=== PATIENT | female | born 1950 | race Caucasian/White ===

== ENCOUNTER 2020-11-24 17:20 | IRF | payer OTHER, SELFPAY ==
--- NOTE | 2020-11-24 17:50 | ADMGEN ---
This patient, Michelle Jeronimo, was admitted to [facility] Room 225-02. Patient/family oriented to hospital policies and general routines including ID bracelet, bed and alarms, visiting hours, pain management, procedures, bathroom and other care routines, personal items, smoking policy, room service/diet, and visiting hours. Information on how to activate the Rapid Response Team has been discussed. Patient/Family are encouraged to report perceived risks to care and to ask questions if they do not understand what they are told or what they should do.
[2020-11-24 17:55] VITALS: BMI 27.6
[2020-11-24 17:56] VITALS: BP 114/50; PULSE 70; RESP 18; TEMP 36.1; O2SAT 97
[2020-11-24 19:39] VITALS: BMI 27.6
[2020-11-24 21:02] VITALS: PULSE 64
[2020-11-24] MEDS: DICLOFENAC SODIUM 1% 100 GM GEL (*BKC) 2 APPLIC TOPICAL (21:02)
[2020-11-24] MEDS: carvediloL 3.125 MG TABLET PO (21:02)
[2020-11-24] MEDS: SACUBITRIL/VALSARTAN 24-26 MG TABLET 1 TAB PO (21:02)
[2020-11-24 22:00] VITALS: BP 127/67; PULSE 70; RESP 16; TEMP 36.1; O2SAT 95
[2020-11-25 05:28] LABS: Basophils Absolute Auto 0.1 K/mm3 (0.0-0.1); Basophils Percent Auto 0.8 % (0.2-1.2); Eosinophils Absolute Auto 0.5 K/mm3 (0-0.3); Eosinophils Percent Auto 6.5 % (0-4.4); Hematocrit 35.5 % (37.0-47.0); Hemoglobin 11.4 g/dL (12.0-15.0); Immature Granulocyte Absolute 0.02 K/mm3 (0.00-0.031); Immature Granulocyte Percent A 0.3 % (0-0.5); Lymphocytes Absolute Auto 2.93 K/mm3 (0.9-3.2); Lymphocytes Percent Auto 41.4 % (18.3-44.2); Mean Corpuscular HGB Conc 32.1 g/dl (32-36); Mean Corpuscular Hemoglobin 28.6 pg (26-34); Mean Platelet Volume 10.9 fl (7.4-10.4); Monocytes Absolute Auto 0.7 K/mm3 (0.1-0.6); Monocytes Percent Auto 10.2 % (2.6-8.5); Neutrophils Absolute Auto 2.9 K/mm3 (1.3-6.7); Neutrophils Percent Auto 40.8 % (45.5-73.1); Platelet Count Result 155 k/mm3 (150-375); Red Blood Count 3.99 M/mm3 (4.2-5.4); Red Cell Distribution Width 14.1 % (11.5-14.5); White Blood Count 7.1 K/mm3 (4.5-10.0)
[2020-11-25 05:47] LABS: Alanine Aminotransferase 21 U/L (4-35); Albumin Level 3.8 g/dL (3.5-5.1); Alkaline Phosphatase 91 U/L (38-126); Anion Gap 4 mmol/L (8-16); Aspartate Amino Transferase 35 U/L (14-36); Bilirubin,Total 0.6 mg/dL (0.2-1.3); Blood Urea Nitrogen 34 mg/dL (7-17); Calcium 9.9 mg/dL (8.4-10.2); Carbon Dioxide 26 mmol/L (22-30); Chloride 108 mmol/L (98-107); Cholesterol 147 mg/dL (0-200); Estimated CRCL calculation 41 ml/min; Estimated Glomerular Filt Rate 55; Glucose 91 mg/dL (65-105); HDL Direct 50 mg/dL; Potassium 4.3 mmol/L (3.4-5.0); Sodium 138 mmol/L (137-145); Triglycerides 73 mg/dL (<150)
[2020-11-25 05:51] VITALS: BP 115/50; PULSE 72; RESP 16; TEMP 36.3; O2SAT 95
[2020-11-25 05:58] LABS: LDL Cholesterol Direct 75 mg/dL
[2020-11-25 09:14] VITALS: PULSE 76
[2020-11-25] MEDS: DICLOFENAC SODIUM 1% 100 GM GEL (*BKC) 2 APPLIC TOPICAL ×4 (09:14→22:15)
[2020-11-25] MEDS: EZETIMIBE 10 MG TABLET PO (09:14)
[2020-11-25] MEDS: SACUBITRIL/VALSARTAN 24-26 MG TABLET 1 TAB PO ×2 (09:14→22:11)
[2020-11-25] MEDS: PARoxetine 10 MG TABLET PO (09:14)
[2020-11-25] MEDS: CHOLECALCIFEROL 1,000 UNITS TABLET 2000 UNITS PO (09:14)
[2020-11-25] MEDS: carvediloL 3.125 MG TABLET PO ×2 (09:14→22:10)
[2020-11-25] MEDS: ASPIRIN 81 MG CHEWABLE TABLET PO (09:14)
[2020-11-25] MEDS: FUROSEMIDE 20 MG TABLET PO (09:15)
[2020-11-25] MEDS: CLOPIDOGREL BISULFATE 75 MG TABLET PO (09:15)
--- NOTE | 2020-11-25 09:45 | WPDREHABHP ---
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 The patient reported being lightheaded after the fall with left leg weakness.. WORKUP: CT of the head was negative for any acute abnormalities. CT of the cervical and lumbar spine demonstrated mild compression deformity involving the superior endplate of L2 without retropulsion, and multilevel degenerative changes with osteopenia. A head MRI could not be completed due to patient's pacemaker. CTA of the head and neck showed no significant stenosis or occlusion. Echocardiogram showed left ventricular systolic function was severely reduced less than 30% with ejection fraction of 25-30%, and mild mitral stenosis with mild aortic regurgitation. Neurology diagnosed patient with new stroke based on clinical findings of left hemiplegia, left-sided numbness, left facial weakness, and functional decline below her baseline. . Of note patient's right upper extremity fractures caused long-term right upper extremity weakness, limited ROM. Patient used a small base quad cane in the left hand for balance. . The patient was started on Plavix and aspirin. Plavix is to continue long-term. Aspirin is to continue for 3 weeks Therapy was initiated at the acute care facility and the patient transferred to us from [facility] on 11/24 2020. FALLS OR SURGERIES: The patient has had no major surgeries in the 100 days prior to admission. Patient has had 2 ( current fall and one 8 months ago) falls in the past year. They had falls with injury ( L2 compression fracture)in the past year. PRIOR LEVEL OF FUNCTION: Eating was [INDEPENDENT] Oral Care was [INDEPENDENT] Toileting Hygiene was [INDEPENDENT] Shower/Bathing was [INDEPENDENT] Upper Body Dressing was [INDEPENDENT] Lower Body Dressing was [INDEPENDENT] Donning/[place] Footwear was [INDEPENDENT] Rolling Left and Right was [INDEPENDENT] Sit to Lying was [INDEPENDENT] Lying to Sitting was [INDEPENDENT] Sit to Stand was [INDEPENDENT] Bed to Chair Transfers was [INDEPENDENT] Toilet Transfers was [INDEPENDENT] Walking was 750 ft independently with small base quad cane Wheelchair Mobility was [NOT APPLICABLE PRIOR TO ADMISSION] Stairs were 12 stairs independently CURRENT LEVEL OF FUNCTION: Eating was independent Oral Care was partial to moderate assist Toileting Hygiene was substantial to maximum assist Shower/Bathing was substantial to maximum assist Upper Body Dressing was partial to moderate assist Lower Body Dressing was substantial to maximal assist Donning/[place] Footwear was substantial to maximum assist Rolling Left and Right was partial to moderate assist Sit to Lying was substantial to maximal assist Lying to Sitting was substantial to maximal assist Sit to Stand was substantial to Bed to Chair Transfers were maximal assist substantial to maximal assist Toilet Transfers were substantial to maximal is Walking was 20 ft with a standard walker and max assist ( min of 2) Wheelchair Mobility was not tested Stairs were not tested GOALS: Our therapists will evaluate the patient and establish the goals. However, upon pre-admission screening, the expected goals were to be [INDEPENDENT] with self-care, [INDEPENDENT] with transfers, and [INDEPENDENT] with functional mobility so that the patient can return home. ESTIMATED LENGTH OF STAY: 7-10 days] POTENTIAL BARRIERS TO DISCHARGE: [
[2020-11-25 11:38] VITALS: BMI 27.6
--- NOTE | 2020-11-25 13:11 | PCNSR ---
On 11/25/20, the student, Janet Fall, provided care and completed [facility] documentation on this patient. I have reviewed the student's documentation and agree with the findings.
--- NOTE | 2020-11-25 13:55 | PCSTNOTE ---
Please refer to the Bedside Swallow Evaluation in the EMR. Please note, silent aspiration cannot be ruled out at bedside.
[2020-11-25 14:00] VITALS: BP 106/49; PULSE 68; RESP 18; TEMP 36.8; O2SAT 98
[2020-11-25 22:00] VITALS: BP 102/57; PULSE 70; RESP 16; TEMP 36.7; O2SAT 96
[2020-11-25 22:08] VITALS: BP 112/54
[2020-11-25 22:10] VITALS: PULSE 70
[2020-11-26 05:53] VITALS: BP 103/44; PULSE 70; RESP 16; TEMP 36.1; O2SAT 98
[2020-11-26 09:25] VITALS: PULSE 76
[2020-11-26] MEDS: EZETIMIBE 10 MG TABLET PO (09:25)
[2020-11-26] MEDS: ASPIRIN 81 MG CHEWABLE TABLET PO (09:25)
[2020-11-26] MEDS: carvediloL 3.125 MG TABLET PO ×2 (09:25→20:19)
[2020-11-26] MEDS: CHOLECALCIFEROL 1,000 UNITS TABLET 2000 UNITS PO (09:25)
[2020-11-26] MEDS: DICLOFENAC SODIUM 1% 100 GM GEL (*BKC) 2 APPLIC TOPICAL ×4 (09:25→20:20)
[2020-11-26] MEDS: PARoxetine 10 MG TABLET PO (09:26)
[2020-11-26] MEDS: FUROSEMIDE 20 MG TABLET PO (09:26)
[2020-11-26] MEDS: CLOPIDOGREL BISULFATE 75 MG TABLET PO (09:26)
[2020-11-26] MEDS: SACUBITRIL/VALSARTAN 24-26 MG TABLET 1 TAB PO ×2 (09:28→20:19)
--- NOTE | 2020-11-26 11:23 | RPD ---
INDIVIDUALIZED PLAN OF CARE FOR Michelle Jeronimo Brief Synthesis of Pre-Admission Screen, Post-Admission Evaluation and Therapy Evaluations: The patient presents to rehab with a cerebral vascular accident. Comorbidities include left-sided weakness, left facial droop, L2 compression fracture, CAD, CHF, HLD, HTN, COPD, osteoarthritis, depression, thyromegaly, s/p ground level fall, osteopenia, and AAA. The complexity of the patient's medical management, nursing, and therapy needs require an inpatient rehab hospital stay with a physician-led interdisciplinary team approach. The patient?s needs will be best met in an intensive program vs. at a lower level of care. The patient requires physician services for medical oversight and coordination of care. Emotional needs will be monitored as depression is a common sequelae of stroke. The patient requires nursing services for frequent neuro checks, anticoagulation therapy, medication management and education, pressure relief and skin care management, monitoring of labs, and fall/safety precautions. The patient will participate in stroke-specific education regarding risk modification to decrease the risk of further stroke; the family will also be invited to participate. Deficits include:ADLs, Balance, Endurance, Family Training/Education, Mobility, Pain Management, ROM, Strength, Transfers, and Safety. Secret Code Expert/Case Management for: Discharge Planning and Patient/Family Counseling Physical Therapy: 5 days per week for 75 minutes. Treatments may include: Therapeutic Exercise, Gait Training, Neuromuscular Re-education, Transfer Training, Community Reintegration, Bed Mobility, Patient/Family Education, Wheelchair Mobility Group Therapy/Concurrent Therapy Rationales: -Improve attention span during functional activities in a distracted environment. -Enhance problem solving and/or adequate judgment skills during functional activities in a distracted environment. -Promote increased safety awareness in a distracted environment to reduce fall risk with functional tasks, transfers, and ambulation to allow a more safe, self-sufficient return to the home environment. -Improve dynamic balance skills to promote safety and independence with functional activities in a distracted environment for maximum gain. Occupational Therapy: 5 days per week for 75 minutes. Treatments may include: Therapeutic Exercise, Therapeutic Activity, Cognitive Training, Self-Care Transfer Training, Community Reintegration, Home Management, Patient/Family Education, Wheelchair Mobility Training, Energy Conservation Training Group Therapy/Concurrent Therapy Rationales: -Allow therapist to observe and teach generalization and carry-over of skills learned in individual therapy. -Enhance problem solving and sequencing skills during therapeutic activities in a distracted environment. -Promote increased safety awareness in a realistic setting to reduce fall risk with functional tasks due to visual and verbal distractions. -Increase functional level with ADLs, ADL transfers and use of adaptive equipment through therapeutic activities with others while promoting safety to allow a more safe, self-sufficient return home. Speech Therapy: 5 days per week for 30 minutes. Treatments may include: Dysphasia Therapy, Speech/Language/Communication Therapy, Cognitive Training, Patient/Family Education Group Therapy/Concurrent Therapy - Rationale: -Allow therapist to observe and teach generalization and carry-over of skills learned in individual therapy. -Improve comprehension skills with complex or abstract ideas through discussion in a realistic setting. -Enhance problem solving skills with complex issues during activities in a distracted environment. -Promote increased memory skills and concentration in a distracted environment for a safe transition home. -Improve attention and focus with language/communication skills in a realistic and supportive therapeutic setting. -Allow for prac
[2020-11-26 14:00] VITALS: BP 102/44; PULSE 69; RESP 18; TEMP 36.6; O2SAT 100
--- NOTE | 2020-11-26 15:19 | WPDNEURORHBP ---
Subjective Date/time seen: 11/26/20 15:19 Patient is present for team conference. Patient is aware that she will require assistance at home. Review of Systems Review of Systems: All systems reviewed & are unremarkable except as noted in HPI and below Functional Status Ambulation Ability Ability to Ambulate 10 Feet: Minimum Assistance X 1 Ambulation Assistive Devices: Walker, Uvaldo Exam Narrative: Exam Narrative: Patient is alert and pleasant. Patient's head is normocephalic. Extraocular muscles are intact. Left neglect is noted. Speech is fluent. Heart rate and rhythm is regular. Lungs are clear to auscultation. Abdomen is soft nontender right upper extremity strength at the shoulder is trace with muscle wasting noted. Coal Weigher strength elbow strength is 3/5 wrist and landscape maintenance internship strength a rough least 2+ out of 5 right lower extremity strength is 4/5 left upper extremity reveals 4- out of 5 left lower extremity 3+ to 4- out of 5. Neuro: Cranial nerves: Yes Normal hearing present Objective Data Vital Signs Vital Signs: Vital Signs - 24 hr 11/25/20 22:00 11/25/20 22:08 11/25/20 22:10 Temperature 36.7 C Pulse Rate 70 70 Respiratory Rate 16 Blood Pressure 102/57 L 112/54 L Pulse Oximetry 96 11/26/20 05:53 11/26/20 09:25 Temperature 36.1 C L Pulse Rate 70 76 Respiratory Rate 16 Blood Pressure 103/44 L Pulse Oximetry 98 Intake/Output Intake/Output: Intake & Output 11/23/20 11/24/20 11/25/20 11/26/20 23:59 23:59 23:59 23:59 Intake Total 720 720 Balance 720 720 Meds/Results Medications: Active Medications Generic Name Dose Route Start Last Admin Trade Name Freq PRN Reason Stop Dose Admin Albuterol 1 puff 11/24/20 18:56 Albuterol Sulfate (*Sp) Aerosol 1 Puff INHALATION QIDRT PRN Shortness Of Breath Or Wheezing Aspirin 81 mg 11/25/20 09:00 11/26/20 09:25 Aspirin 81 Mg Chewable Tablet PO 81 mg DAILY ILYA Administration Budesonide/Formoterol Fumarate 2 puff 11/24/20 20:00 11/26/20 09:25 Budesonide/Form 160-4.5 Mcg (*Sp) INHALATION 2 puff Q12HRT ILYA Administration Carvedilol 3.125 mg 11/24/20 21:00 11/26/20 09:25 Carvedilol 3.125 Mg Tablet PO 3.125 mg Q12HR ILYA Administration Clopidogrel Bisulfate 75 mg 11/25/20 09:00 11/26/20 09:26 Clopidogrel Bisulfate 75 Mg Tablet PO 75 mg DAILY ILYA Administration Diclofenac Sodium 2 applic 11/24/20 21:00 11/26/20 12:41 Diclofenac Sodium 1% 100 Gm Gel (*Bkc) TOPICAL 12/24/20 21:01 2 applic QID ILYA Administration Ezetimibe 10 mg 11/25/20 09:00 11/26/20 09:25 Ezetimibe 10 Mg Tablet PO 10 mg DAILY ILYA Administration Furosemide 20 mg 11/25/20 09:00 11/26/20 09:26 Furosemide 20 Mg Tablet PO 20 mg DAILY ILYA Administration Non-Formulary Medication 150 mg 12/04/20 09:00 Ibandronate PO 01/03/21 09:01 ONCE ILYA Paroxetine HCl 10 mg 11/25/20 09:00 11/26/20 09:26 Paroxetine 10 Mg Tablet PO 10 mg DAILY ILYA Administration Sacubitril/Valsartan 1 tab 11/24/20 21:00 11/26/20 09:28 Sacubitril/Valsartan 24-26 Mg Tablet PO 1 tab Q12HR ILYA Administration Vitamin D 2,000 units 11/25/20 09:00 11/26/20 09:25 Cholecalciferol 1,000 Units Tablet PO 2,000 units DAILY ILYA Administration Progress Note: A&P Assessment and Plan (1) CVA (cerebral vascular accident): Code(s): I63.9 - Cerebral infarction, unspecified Status: Acute Assessment and Plan: aspirin 81 mg daily for 3 weeks. Plavix 75 mg daily (2) Left hemiplegia: Code(s): G81.94 - Hemiplegia, unspecified affecting left nondominant side Status: Acute Assessment and Plan: PT OT (3) Hemisensory loss: Code(s): R20.0 - Anesthesia of skin Status: Acute Assessment and Plan: PT OT (4) Left-sided neglect: Code(s): R41.4 - Neurologic neglect syndrome Status: Acute Assessment and Plan: add spe
[2020-11-26 20:19] VITALS: PULSE 68
[2020-11-26 21:36] VITALS: BP 111/48; PULSE 70; RESP 16; TEMP 36.3; O2SAT 100
[2020-11-27 06:00] VITALS: BP 95/43; PULSE 71; RESP 16; TEMP 36.3; O2SAT 100
[2020-11-27] MEDS: ASPIRIN 81 MG CHEWABLE TABLET PO (09:44)
[2020-11-27 09:45] VITALS: PULSE 71
[2020-11-27] MEDS: CLOPIDOGREL BISULFATE 75 MG TABLET PO (09:45)
[2020-11-27] MEDS: EZETIMIBE 10 MG TABLET PO (09:45)
[2020-11-27] MEDS: carvediloL 3.125 MG TABLET PO ×2 (09:45→20:22)
[2020-11-27] MEDS: SACUBITRIL/VALSARTAN 24-26 MG TABLET 1 TAB PO ×2 (09:45→20:22)
[2020-11-27] MEDS: FUROSEMIDE 20 MG TABLET PO (09:45)
[2020-11-27] MEDS: CHOLECALCIFEROL 1,000 UNITS TABLET 2000 UNITS PO (09:45)
[2020-11-27] MEDS: PARoxetine 10 MG TABLET PO (09:46)
[2020-11-27] MEDS: DICLOFENAC SODIUM 1% 100 GM GEL (*BKC) 2 APPLIC TOPICAL ×4 (09:46→20:21)
[2020-11-27 14:00] VITALS: BP 104/64; PULSE 71; RESP 18; TEMP 36.4; O2SAT 97
--- NOTE | 2020-11-27 16:11 | WPDNEURORHBP ---
Subjective Date/time seen: 11/27/20 16:11 patient had concerns over team conference yesterday. Patient felt that discussion regarding requirements for home should not be addressed. Explained to patient that since she lives alone and we know when she is discharged from our program she will still need supervision, the more time I give family members the better it is to have things arranged. Patient completely understood and had no further complaints Review of Systems Review of Systems: All systems reviewed & are unremarkable except as noted in HPI and below Functional Status Ambulation Ability Ability to Ambulate 10 Feet: Minimum Assistance X 1 Ambulation Assistive Devices: Cane, Uvaldo Exam Narrative: Exam Narrative: Patient is alert and pleasant. Patient's head is normocephalic. Extraocular muscles are intact. Left neglect is noted. Speech is fluent. Heart rate and rhythm is regular. Lungs are clear to auscultation. Abdomen is soft nontender right upper extremity strength at the shoulder is trace with muscle wasting noted. Moving Picture Operator strength elbow strength is 3/5 wrist and alterations expert strength a rough least 2+ out of 5 right lower extremity strength is 4/5 left upper extremity reveals 4- out of 5 left lower extremity 3+ to 4- out of 5. Neuro: Cranial nerves: Yes Normal hearing present Objective Data Vital Signs Vital Signs: Vital Signs - 24 hr 11/26/20 20:19 11/26/20 21:36 11/27/20 06:00 Temperature 36.3 C L 36.3 C L Pulse Rate 68 70 71 Respiratory Rate 16 16 Blood Pressure 111/48 L 95/43 L Pulse Oximetry 100 100 11/27/20 09:45 11/27/20 14:00 Temperature 36.4 C Pulse Rate 71 71 Respiratory Rate 18 Blood Pressure 104/64 Pulse Oximetry 97 Intake/Output Intake/Output: Intake & Output 11/24/20 11/25/20 11/26/20 11/27/20 23:59 23:59 23:59 23:59 Intake Total 720 960 480 Balance 720 960 480 Meds/Results Medications: Active Medications Generic Name Dose Route Start Last Admin Trade Name Freq PRN Reason Stop Dose Admin Albuterol 1 puff 11/24/20 18:56 Albuterol Sulfate (*Sp) Aerosol 1 Puff INHALATION QIDRT PRN Shortness Of Breath Or Wheezing Aspirin 81 mg 11/25/20 09:00 11/27/20 09:44 Aspirin 81 Mg Chewable Tablet PO 81 mg DAILY ILYA Administration Budesonide/Formoterol Fumarate 2 puff 11/24/20 20:00 11/27/20 09:43 Budesonide/Form 160-4.5 Mcg (*Sp) INHALATION 2 puff Q12HRT ILYA Administration Carvedilol 3.125 mg 11/24/20 21:00 11/27/20 09:45 Carvedilol 3.125 Mg Tablet PO 3.125 mg Q12HR ILYA Administration Clopidogrel Bisulfate 75 mg 11/25/20 09:00 11/27/20 09:45 Clopidogrel Bisulfate 75 Mg Tablet PO 75 mg DAILY ILYA Administration Diclofenac Sodium 2 applic 11/24/20 21:00 11/27/20 13:33 Diclofenac Sodium 1% 100 Gm Gel (*Bkc) TOPICAL 12/24/20 21:01 1 applic QID ILYA Administration Ezetimibe 10 mg 11/25/20 09:00 11/27/20 09:45 Ezetimibe 10 Mg Tablet PO 10 mg DAILY ILYA Administration Furosemide 20 mg 11/25/20 09:00 11/27/20 09:45 Furosemide 20 Mg Tablet PO 20 mg DAILY ILYA Administration Non-Formulary Medication 150 mg 12/04/20 09:00 Ibandronate PO 01/03/21 09:01 ONCE ILYA Paroxetine HCl 10 mg 11/25/20 09:00 11/27/20 09:46 Paroxetine 10 Mg Tablet PO 10 mg DAILY ILYA Administration Sacubitril/Valsartan 1 tab 11/24/20 21:00 11/27/20 09:45 Sacubitril/Valsartan 24-26 Mg Tablet PO 1 tab Q12HR ILYA Administration Vitamin D 2,000 units 11/25/20 09:00 11/27/20 09:45 Cholecalciferol 1,000 Units Tablet PO 2,000 units DAILY ILYA Administration Progress Note: A&P Assessment and Plan (1) CVA (cerebral vascular accident): Code(s): I63.9 - Cerebral infarction, unspecified Status: Acute Assessment and Plan: aspirin 81 mg daily for 3 weeks. Plavix 75 mg daily (2) Left hemiplegia: Code(s): G81.94 - Hemiplegia, unspecified affecting left nondomin
[2020-11-27 20:22] VITALS: PULSE 78
[2020-11-27 22:00] VITALS: BP 115/44; PULSE 72; RESP 16; TEMP 36.3; O2SAT 99
[2020-11-28 05:30] VITALS: BP 100/41; PULSE 69; RESP 16; TEMP 36.4; O2SAT 97
[2020-11-28 05:57] VITALS: BP 100/41; PULSE 69; RESP 16; TEMP 36.4; O2SAT 97
[2020-11-28] MEDS: PARoxetine 10 MG TABLET PO (09:32)
[2020-11-28 09:33] VITALS: PULSE 86
[2020-11-28] MEDS: carvediloL 3.125 MG TABLET PO ×2 (09:33→20:18)
[2020-11-28] MEDS: SACUBITRIL/VALSARTAN 24-26 MG TABLET 1 TAB PO ×2 (09:33→20:18)
[2020-11-28] MEDS: ASPIRIN 81 MG CHEWABLE TABLET PO (09:33)
[2020-11-28] MEDS: EZETIMIBE 10 MG TABLET PO (09:33)
[2020-11-28] MEDS: FUROSEMIDE 20 MG TABLET PO (09:33)
[2020-11-28] MEDS: CLOPIDOGREL BISULFATE 75 MG TABLET PO (09:33)
[2020-11-28] MEDS: DICLOFENAC SODIUM 1% 100 GM GEL (*BKC) 2 APPLIC TOPICAL ×4 (09:33→20:17)
[2020-11-28] MEDS: CHOLECALCIFEROL 1,000 UNITS TABLET 2000 UNITS PO (09:33)
--- NOTE | 2020-11-28 10:11 | WPDNEURORHBP ---
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 The patient reported being lightheaded after the fall with left leg weakness.. WORKUP: CT of the head was negative for any acute abnormalities. CT of the cervical and lumbar spine demonstrated mild compression deformity involving the superior endplate of L2 without retropulsion, and multilevel degenerative changes with osteopenia. A head MRI could not be completed due to patient's pacemaker. CTA of the head and neck showed no significant stenosis or occlusion. Echocardiogram showed left ventricular systolic function was severely reduced less than 30% with ejection fraction of 25-30%, and mild mitral stenosis with mild aortic regurgitation. Neurology diagnosed patient with new stroke based on clinical findings of left hemiplegia, left-sided numbness, left facial weakness, and functional decline below her baseline. . Of note patient's right upper extremity fractures caused long-term right upper extremity weakness, limited ROM. Patient used a small base quad cane in the left hand for balance. . The patient was started on Plavix and aspirin. Plavix is to continue long-term. Aspirin is to continue for 3 weeks 11/28/20 Patient was lowered to the floor during a transfer this morning. LLE gave out. Patient voices no complaints. Functional Status Ambulation Ability Ability to Ambulate 10 Feet: Minimum Assistance X 1 Ambulation Assistive Devices: Cane, Uvaldo Exam Narrative: Exam Narrative: Patient is alert and pleasant. Patient's head is normocephalic. Extraocular muscles are intact. Left neglect is noted. Speech is fluent. Heart rate and rhythm is regular. Lungs are clear to auscultation. Abdomen is soft nontender right upper extremity strength at the shoulder is trace with muscle wasting noted. Library Technician strength elbow strength is 3/5 wrist and hand etcher helper strength a rough least 2+ out of 5 right lower extremity strength is 4/5 left upper extremity reveals 4- out of 5 left lower extremity 3+ to 4- out of 5. Neuro: Cranial nerves: Yes Normal hearing present Objective Data Vital Signs Vital Signs: Vital Signs - 24 hr 11/27/20 14:00 11/27/20 20:22 11/27/20 22:00 Temperature 36.4 C 36.3 C L Pulse Rate 71 78 72 Respiratory Rate 18 16 Blood Pressure 104/64 115/44 L Pulse Oximetry 97 99 11/28/20 05:30 11/28/20 05:57 11/28/20 09:33 Temperature 36.4 C L 36.4 C L Pulse Rate 69 69 86 Respiratory Rate 16 16 Blood Pressure 100/41 L 100/41 L Pulse Oximetry 97 97 Intake/Output Intake/Output: Intake & Output 11/25/20 11/26/20 11/27/20 11/28/20 23:59 23:59 23:59 23:59 Intake Total 720 960 720 240 Balance 720 960 720 240 Meds/Results Medications: Active Medications Generic Name Dose Route Start Last Admin Trade Name Freq PRN Reason Stop Dose Admin Albuterol 1 puff 11/24/20 18:56 Albuterol Sulfate (*Sp) Aerosol 1 Puff INHALATION QIDRT PRN Shortness Of Breath Or Wheezing Aspirin 81 mg 11/25/20 09:00 11/28/20 09:33 Aspirin 81 Mg Chewable Tablet PO 81 mg DAILY ILYA Administration Budesonide/Formoterol Fumarate 2 puff 11/24/20 20:00 11/28/20 09:32 Budesonide/Form 160-4.5 Mcg (*Sp) INHALATION 2 puff Q12HRT ILYA Administration Carvedilol 3.125 mg 11/24/20 21:00 11/28/20 09:33 Carvedilol 3.125 Mg Tablet PO 3.125 mg Q12HR ILYA Administration Clopidogrel Bisulfate 75 mg 11/25/20 09:00 11/28/20 09:33 Clopidogrel Bisulfate 75 Mg Tablet PO 75 mg DAILY ILYA Administration Diclofenac Sodium 2 applic 11/24/20 21:00 11/28/20 09:33 Diclofenac Sodium 1% 100 Gm Gel (*Bkc) TOPICAL 12/24/20 21:
[2020-11-28] MEDS: ACETAMINOPHEN 325 MG TABLET 650 MG PO (13:48)
[2020-11-28 14:00] VITALS: BP 104/46; PULSE 70; RESP 18; TEMP 36.3; O2SAT 96
[2020-11-28 20:18] VITALS: PULSE 76
[2020-11-28 22:00] VITALS: BP 140/53; PULSE 67; RESP 16; TEMP 36.4; O2SAT 99
[2020-11-29 06:00] VITALS: BP 129/56; PULSE 68; RESP 16; TEMP 36.5; O2SAT 96
[2020-11-29 09:05] VITALS: PULSE 88
[2020-11-29] MEDS: PANTOPRAZOLE 40 MG TABLET PO (09:05)
[2020-11-29] MEDS: PARoxetine 10 MG TABLET PO (09:05)
[2020-11-29] MEDS: SACUBITRIL/VALSARTAN 24-26 MG TABLET 1 TAB PO ×2 (09:05→20:12)
[2020-11-29] MEDS: carvediloL 3.125 MG TABLET PO ×2 (09:05→20:09)
[2020-11-29] MEDS: FUROSEMIDE 20 MG TABLET PO (09:05)
--- NOTE | 2020-11-29 09:05 | WPDNEURORHBP ---
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 The patient reported being lightheaded after the fall with left leg weakness.. WORKUP: CT of the head was negative for any acute abnormalities. CT of the cervical and lumbar spine demonstrated mild compression deformity involving the superior endplate of L2 without retropulsion, and multilevel degenerative changes with osteopenia. A head MRI could not be completed due to patient's pacemaker. CTA of the head and neck showed no significant stenosis or occlusion. Echocardiogram showed left ventricular systolic function was severely reduced less than 30% with ejection fraction of 25-30%, and mild mitral stenosis with mild aortic regurgitation. Neurology diagnosed patient with new stroke based on clinical findings of left hemiplegia, left-sided numbness, left facial weakness, and functional decline below her baseline. . Of note patient's right upper extremity fractures caused long-term right upper extremity weakness, limited ROM. Patient used a small base quad cane in the left hand for balance. . The patient was started on Plavix and aspirin. Plavix is to continue long-term. Aspirin is to continue for 3 weeks Michelle is complimentary regarding rehab staff. Patient voices no concerns. Functional Status Ambulation Ability Ability to Ambulate 10 Feet: Minimum Assistance X 1 Ambulation Assistive Devices: Cane, Uvaldo Exam Narrative: Exam Narrative: Patient is alert and pleasant. Patient's head is normocephalic. Extraocular muscles are intact. Left neglect is noted. Speech is fluent. Heart rate and rhythm is regular. Lungs are clear to auscultation. Abdomen is soft nontender right upper extremity strength at the shoulder is trace with muscle wasting noted. Emt I/99 strength elbow strength is 3/5 wrist and security infrastructure engineer strength a rough least 2+ out of 5 right lower extremity strength is 4/5 left upper extremity reveals 4- out of 5 left lower extremity 3+ to 4- out of 5. Sensory loss to LUE is severe to moderate. Proprioception was poor to LUE Neuro: Cranial nerves: Yes Normal hearing present Objective Data Vital Signs Vital Signs: Vital Signs - 24 hr 11/28/20 09:33 11/28/20 14:00 11/28/20 20:18 Temperature 36.3 C L Pulse Rate 86 70 76 Respiratory Rate 18 Blood Pressure 104/46 L Pulse Oximetry 96 11/28/20 22:00 11/29/20 06:00 Temperature 36.4 C L 36.5 C Pulse Rate 67 68 Respiratory Rate 16 16 Blood Pressure 140/53 L 129/56 L Pulse Oximetry 99 96 Intake/Output Intake/Output: Intake & Output 11/26/20 11/27/20 11/28/20 11/29/20 23:59 23:59 23:59 23:59 Intake Total 960 720 720 Balance 960 720 720 Meds/Results Medications: Active Medications Generic Name Dose Route Start Last Admin Trade Name Freq PRN Reason Stop Dose Admin Acetaminophen 650 mg 11/28/20 13:14 11/28/20 13:48 Acetaminophen 325 Mg Tablet PO 650 mg Q6H PRN Administration Mild Pain (1-3) or Fever Albuterol 1 puff 11/24/20 18:56 Albuterol Sulfate (*Sp) Aerosol 1 Puff INHALATION QIDRT PRN Shortness Of Breath Or Wheezing Aspirin 81 mg 11/25/20 09:00 11/28/20 09:33 Aspirin 81 Mg Chewable Tablet PO 81 mg DAILY ILYA Administration Budesonide/Formoterol Fumarate 2 puff 11/24/20 20:00 11/28/20 20:18 Budesonide/Form 160-4.5 Mcg (*Sp) INHALATION 2 puff Q12HRT ILYA Administration Carvedilol 3.125 mg 11/24/20 21:00 11/28/20 20:18 Carvedilol 3.125 Mg Tablet PO 3.125 mg Q12HR ILYA Administration Clopidogrel Bisulfate 75 mg 11/25/20 09:00 11/28/20 09:33 Clopidogrel Bisulfate 75 Mg Tablet PO 75 mg DAILY [facility]
[2020-11-29] MEDS: CLOPIDOGREL BISULFATE 75 MG TABLET PO (09:06)
[2020-11-29] MEDS: DICLOFENAC SODIUM 1% 100 GM GEL (*BKC) 2 APPLIC TOPICAL ×4 (09:06→20:11)
[2020-11-29] MEDS: ASPIRIN 81 MG CHEWABLE TABLET PO (09:06)
[2020-11-29] MEDS: EZETIMIBE 10 MG TABLET PO (09:06)
[2020-11-29] MEDS: CHOLECALCIFEROL 1,000 UNITS TABLET 2000 UNITS PO (09:06)
[2020-11-29 14:00] VITALS: BP 127/87; PULSE 72; RESP 18; TEMP 36.3; O2SAT 95
--- NOTE | 2020-11-29 17:21 | PHAR ---
PT'S HOME MED IBANDRONATE 150 MG TAB VERIFIED BY PHARMACY
[2020-11-29 20:09] VITALS: PULSE 76
[2020-11-29 21:29] VITALS: BP 109/54; PULSE 70; RESP 16; TEMP 36.1; O2SAT 99
[2020-11-30 06:00] VITALS: BP 118/54; PULSE 71; RESP 16; TEMP 36.2; O2SAT 98
[2020-11-30 08:47] VITALS: PULSE 71
[2020-11-30] MEDS: carvediloL 3.125 MG TABLET PO ×2 (08:47→20:34)
[2020-11-30] MEDS: CLOPIDOGREL BISULFATE 75 MG TABLET PO (08:48)
[2020-11-30] MEDS: PARoxetine 10 MG TABLET PO (08:48)
[2020-11-30] MEDS: CHOLECALCIFEROL 1,000 UNITS TABLET 2000 UNITS PO (08:48)
[2020-11-30] MEDS: ASPIRIN 81 MG CHEWABLE TABLET PO (08:48)
[2020-11-30] MEDS: PANTOPRAZOLE 40 MG TABLET PO (08:48)
[2020-11-30] MEDS: SACUBITRIL/VALSARTAN 24-26 MG TABLET 1 TAB PO ×2 (08:48→20:34)
[2020-11-30] MEDS: DICLOFENAC SODIUM 1% 100 GM GEL (*BKC) 2 APPLIC TOPICAL ×4 (08:48→20:34)
[2020-11-30] MEDS: EZETIMIBE 10 MG TABLET PO (08:48)
[2020-11-30] MEDS: FUROSEMIDE 20 MG TABLET PO (08:48)
--- NOTE | 2020-11-30 10:34 | PCPTNOTE ---
Michelle Marin Nix was evaluated for a divya cane on 11/30/2020 by this physical therapist assistant librarian. The divya cane will resolve patient's mobility limitations and will be used for ADL's within the home. The patient can safely use the divya cane. ?The divya cane will resolve the patient?s mobility deficits, including decreased endurance, decreased balance, decreased strength, decreased safety awareness/Left side awareness Chelo Cordon PTA.
--- NOTE | 2020-11-30 12:58 | PCDIET ---
Nutrition Follow-Up Complete: Nutrition Diagnosis: Inadequate oral food and beverage intake related to CVA as evidence by decreased appetite. Nutrition Goal: Meet estimated nutritional needs. Goal met. Patient consuming 75-100% of meals on heart healthy diet. Reports good appetite and denies c/o. Stroke MNT information provided this date. Last recorded weight is 68.5 kg. Recommend obtaining weekly weight. Bowel Motility: +BM today. Labs Reviewed: No new labs available. Meds Noted: Symbicort, Zetia, Lasix, Entresto, Coreg, Protonix, Vitamin D Additional Notes: No documented skin breakdown. Will continue to monitor with same goal. Nutrition Monitoring and Evaluation: Follow up in 7 days.
[2020-11-30 14:00] VITALS: BP 103/42; PULSE 66; RESP 18; TEMP 35.8; O2SAT 100
--- NOTE | 2020-11-30 15:03 | WPDNEURORHBP ---
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 The patient reported being lightheaded after the fall with left leg weakness.. WORKUP: CT of the head was negative for any acute abnormalities. CT of the cervical and lumbar spine demonstrated mild compression deformity involving the superior endplate of L2 without retropulsion, and multilevel degenerative changes with osteopenia. A head MRI could not be completed due to patient's pacemaker. CTA of the head and neck showed no significant stenosis or occlusion. Echocardiogram showed left ventricular systolic function was severely reduced less than 30% with ejection fraction of 25-30%, and mild mitral stenosis with mild aortic regurgitation. Neurology diagnosed patient with new stroke based on clinical findings of left hemiplegia, left-sided numbness, left facial weakness, and functional decline below her baseline. . Of note patient's right upper extremity fractures caused long-term right upper extremity weakness, limited ROM. Patient used a small base quad cane in the left hand for balance. . The patient was started on Plavix and aspirin. Plavix is to continue long-term. Aspirin is to continue for 3 weeks Patient voices no concerns. Review of Systems Review of Systems: All systems reviewed & are unremarkable except as noted in HPI and below Functional Status Ambulation Ability Ability to Ambulate 10 Feet: Contact Guard Ability to Ambulate 50 Feet With 2 Turns: Contact Guard Ambulation Assistive Devices: Cane, Uvaldo Exam Narrative: Exam Narrative: Patient is alert and pleasant. Patient's head is normocephalic. Extraocular muscles are intact. Left neglect is noted. Speech is fluent. Heart rate and rhythm is regular. Lungs are clear to auscultation. Abdomen is soft nontender right upper extremity strength at the shoulder is trace with muscle wasting noted. Fmd Teacher strength elbow strength is 3/5 wrist and autobody technician strength a rough least 2+ out of 5 right lower extremity strength is 4/5 left upper extremity reveals 4- out of 5 left lower extremity 3+ to 4- out of 5. Sensory loss to LUE is severe to moderate. Proprioception was poor to LUE. Patient beginning to scan to left more. Neuro: Cranial nerves: Yes Normal hearing present Objective Data Vital Signs Vital Signs: Vital Signs - 24 hr 11/29/20 20:09 11/29/20 21:29 11/30/20 06:00 Temperature 36.1 C L 36.2 C L Pulse Rate 76 70 71 Respiratory Rate 16 16 Blood Pressure 109/54 L 118/54 L Pulse Oximetry 99 98 11/30/20 08:47 Temperature Pulse Rate 71 Respiratory Rate Blood Pressure Pulse Oximetry Intake/Output Intake/Output: Intake & Output 11/27/20 11/28/20 11/29/20 11/30/20 23:59 23:59 23:59 23:59 Intake Total 720 720 720 600 Balance 720 720 720 600 Meds/Results Medications: Active Medications Generic Name Dose Route Start Last Admin Trade Name Freq PRN Reason Stop Dose Admin Acetaminophen 650 mg 11/28/20 13:14 11/28/20 13:48 Acetaminophen 325 Mg Tablet PO 650 mg Q6H PRN Administration Mild Pain (1-3) or Fever Albuterol 1 puff 11/24/20 18:56 Albuterol Sulfate (*Sp) Aerosol 1 Puff INHALATION QIDRT PRN Shortness Of Breath Or Wheezing Aspirin 81 mg 11/25/20 09:00 11/30/20 08:48 Aspirin 81 Mg Chewable Tablet PO 81 mg DAILY ILYA Administration Budesonide/Formoterol Fumarate 2 puff 11/24/20 20:00 11/30/20 08:45 Budesonide/Form 160-4.5 Mcg (*Sp) INHALATION 2 puff Q12HRT ILYA Administration Carvedilol 3.125 mg 11/24/20 21:00 11/30/20 08:47 Carvedilol 3.125 Mg Tablet PO 3.125 mg Q12HR ILYA Administration
[2020-11-30 20:34] VITALS: PULSE 66
[2020-11-30 21:46] VITALS: BP 113/45; PULSE 70; RESP 16; TEMP 36.4; O2SAT 99
[2020-12-01 06:00] VITALS: BP 126/63; PULSE 69; RESP 16; TEMP 36.1; O2SAT 98
[2020-12-01] MEDS: CHOLECALCIFEROL 1,000 UNITS TABLET 2000 UNITS PO (07:41)
[2020-12-01 07:42] VITALS: PULSE 64
[2020-12-01] MEDS: carvediloL 3.125 MG TABLET PO ×2 (07:42→22:37)
[2020-12-01] MEDS: ASPIRIN 81 MG CHEWABLE TABLET PO (07:43)
[2020-12-01] MEDS: PARoxetine 10 MG TABLET PO (07:43)
[2020-12-01] MEDS: SACUBITRIL/VALSARTAN 24-26 MG TABLET 1 TAB PO ×2 (07:43→22:37)
[2020-12-01] MEDS: FUROSEMIDE 20 MG TABLET PO (07:43)
[2020-12-01] MEDS: CLOPIDOGREL BISULFATE 75 MG TABLET PO (07:43)
[2020-12-01] MEDS: EZETIMIBE 10 MG TABLET PO (07:43)
[2020-12-01] MEDS: PANTOPRAZOLE 40 MG TABLET PO (07:43)
[2020-12-01] MEDS: DICLOFENAC SODIUM 1% 100 GM GEL (*BKC) 2 APPLIC TOPICAL ×4 (07:43→22:39)
[2020-12-01 14:00] VITALS: BP 118/51; PULSE 69; RESP 18; TEMP 36.7; O2SAT 99
--- NOTE | 2020-12-01 14:01 | WPDNEURORHBP ---
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 The patient reported being lightheaded after the fall with left leg weakness.. WORKUP: CT of the head was negative for any acute abnormalities. CT of the cervical and lumbar spine demonstrated mild compression deformity involving the superior endplate of L2 without retropulsion, and multilevel degenerative changes with osteopenia. A head MRI could not be completed due to patient's pacemaker. CTA of the head and neck showed no significant stenosis or occlusion. Echocardiogram showed left ventricular systolic function was severely reduced less than 30% with ejection fraction of 25-30%, and mild mitral stenosis with mild aortic regurgitation. Neurology diagnosed patient with new stroke based on clinical findings of left hemiplegia, left-sided numbness, left facial weakness, and functional decline below her baseline. . Of note patient's right upper extremity fractures caused long-term right upper extremity weakness, limited ROM. Patient used a small base quad cane in the left hand for balance. . The patient was started on Plavix and aspirin. Plavix is to continue long-term. Aspirin is to continue for 3 weeks Patient voices no complaints. Patient had numerous questions during IDT Review of Systems Review of Systems: All systems reviewed & are unremarkable except as noted in HPI and below Functional Status Ambulation Ability Ability to Ambulate 10 Feet: Contact Guard Ability to Ambulate 50 Feet With 2 Turns: Contact Guard Ambulation Assistive Devices: Walker, Wheeled Exam Narrative: Exam Narrative: Patient is alert and pleasant. Patient's head is normocephalic. Extraocular muscles are intact. Left neglect is noted. Speech is fluent. Heart rate and rhythm is regular. Lungs are clear to auscultation. Abdomen is soft nontender right upper extremity strength at the shoulder is trace with muscle wasting noted. Glass Crusher strength elbow strength is 3/5 wrist and pipe supervisor strength a rough least 2+ out of 5 right lower extremity strength is 4/5 left upper extremity reveals 4- out of 5 left lower extremity 3+ to 4- out of 5. Sensory loss to LUE is severe to moderate. Proprioception was poor to LUE. Patient beginning to scan to left more. Neuro: Cranial nerves: Yes Normal hearing present Objective Data Vital Signs Vital Signs: Vital Signs - 24 hr 11/30/20 20:34 11/30/20 21:46 12/01/20 06:00 Temperature 36.4 C 36.1 C L Pulse Rate 66 70 69 Respiratory Rate 16 16 Blood Pressure 113/45 L 126/63 Pulse Oximetry 99 98 12/01/20 07:42 Temperature Pulse Rate 64 Respiratory Rate Blood Pressure Pulse Oximetry Intake/Output Intake/Output: Intake & Output 11/28/20 11/29/20 11/30/20 12/01/20 23:59 23:59 23:59 23:59 Intake Total 720 720 840 480 Balance 720 720 840 480 Meds/Results Medications: Active Medications Generic Name Dose Route Start Last Admin Trade Name Freq PRN Reason Stop Dose Admin Acetaminophen 650 mg 11/28/20 13:14 11/28/20 13:48 Acetaminophen 325 Mg Tablet PO 650 mg Q6H PRN Administration Mild Pain (1-3) or Fever Albuterol 1 puff 11/24/20 18:56 Albuterol Sulfate (*Sp) Aerosol 1 Puff INHALATION QIDRT PRN Shortness Of Breath Or Wheezing Aspirin 81 mg 11/25/20 09:00 12/01/20 07:43 Aspirin 81 Mg Chewable Tablet PO 81 mg DAILY ILYA Administration Budesonide/Formoterol Fumarate 2 puff 11/24/20 20:00 12/01/20 07:44 Budesonide/Form 160-4.5 Mcg (*Sp) INHALATION 2 puff Q12HRT ILYA Administration Carvedilol 3.125 mg 11/24/20 21:00 12/01/20 07:42 Carvedilol 3.125 Mg Tablet
[2020-12-01 22:00] VITALS: BP 116/38; PULSE 70; RESP 16; TEMP 36.6; O2SAT 97
[2020-12-01 22:30] VITALS: BP 134/53; PULSE 66
[2020-12-01 22:37] VITALS: PULSE 66
[2020-12-02 05:25] LABS: Basophils Absolute Auto 0.1 K/mm3 (0.0-0.1); Basophils Percent Auto 1.2 % (0.2-1.2); Eosinophils Absolute Auto 0.5 K/mm3 (0-0.3); Eosinophils Percent Auto 6.6 % (0-4.4); Hematocrit 32.5 % (37.0-47.0); Hemoglobin 10.4 g/dL (12.0-15.0); Lymphocytes Absolute Auto 3.15 K/mm3 (0.9-3.2); Lymphocytes Percent Auto 42.6 % (18.3-44.2); Mean Corpuscular Hemoglobin 28.4 pg (26-34); Mean Corpuscular Volume 88.8 fl (80-100); Mean Platelet Volume 10.7 fl (7.4-10.4); Monocytes Absolute Auto 0.8 K/mm3 (0.1-0.6); Monocytes Percent Auto 10.6 % (2.6-8.5); Neutrophils Absolute Auto 2.9 K/mm3 (1.3-6.7); Platelet Count Result 165 k/mm3 (150-375); Red Blood Count 3.66 M/mm3 (4.2-5.4); White Blood Count 7.4 K/mm3 (4.5-10.0)
[2020-12-02 05:46] LABS: Alanine Aminotransferase 20 U/L (4-35); Albumin Level 3.5 g/dL (3.5-5.1); Alkaline Phosphatase 86 U/L (38-126); Anion Gap 3 mmol/L (8-16); Aspartate Amino Transferase 30 U/L (14-36); Bilirubin,Total 0.3 mg/dL (0.2-1.3); Blood Urea Nitrogen 34 mg/dL (7-17); Calcium 9.2 mg/dL (8.4-10.2); Carbon Dioxide 25 mmol/L (22-30); Chloride 108 mmol/L (98-107); Estimated CRCL calculation 41 ml/min; Estimated Glomerular Filt Rate 55; Glucose 93 mg/dL (65-105); Potassium 4.3 mmol/L (3.4-5.0); Sodium 136 mmol/L (137-145)
[2020-12-02 06:00] VITALS: BP 126/57; PULSE 70; RESP 16; TEMP 36.1; O2SAT 97
[2020-12-02 08:00] VITALS: PULSE 70; RESP 16; O2SAT 97
[2020-12-02 10:10] VITALS: PULSE 70
[2020-12-02] MEDS: carvediloL 3.125 MG TABLET PO ×2 (10:10→20:31)
[2020-12-02] MEDS: CLOPIDOGREL BISULFATE 75 MG TABLET PO (10:10)
[2020-12-02] MEDS: CHOLECALCIFEROL 1,000 UNITS TABLET 2000 UNITS PO (10:11)
[2020-12-02] MEDS: PARoxetine 10 MG TABLET PO (10:11)
[2020-12-02] MEDS: EZETIMIBE 10 MG TABLET PO (10:11)
[2020-12-02] MEDS: ASPIRIN 81 MG CHEWABLE TABLET PO (10:11)
[2020-12-02] MEDS: FUROSEMIDE 20 MG TABLET PO (10:11)
[2020-12-02] MEDS: PANTOPRAZOLE 40 MG TABLET PO (10:12)
[2020-12-02] MEDS: SACUBITRIL/VALSARTAN 24-26 MG TABLET 1 TAB PO ×2 (10:12→20:31)
[2020-12-02] MEDS: DICLOFENAC SODIUM 1% 100 GM GEL (*BKC) 2 APPLIC TOPICAL ×4 (10:12→20:31)
[2020-12-02 14:00] VITALS: BP 141/42; PULSE 72; RESP 20; TEMP 36.2; O2SAT 100
--- NOTE | 2020-12-02 14:54 | WPDNEURORHBP ---
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 on 11/19/2020 following a ground level fall and striking her head. The patient reported being lightheaded after the fall with left leg weakness.. WORKUP: CT of the head was negative for any acute abnormalities. CT of the cervical and lumbar spine demonstrated mild compression deformity involving the superior endplate of L2 without retropulsion, and multilevel degenerative changes with osteopenia. A head MRI could not be completed due to patient's pacemaker. CTA of the head and neck showed no significant stenosis or occlusion. Echocardiogram showed left ventricular systolic function was severely reduced less than 30% with ejection fraction of 25-30%, and mild mitral stenosis with mild aortic regurgitation. Neurology diagnosed patient with new stroke based on clinical findings of left hemiplegia, left-sided numbness, left facial weakness, and functional decline below her baseline. . Of note patient's right upper extremity fractures caused long-term right upper extremity weakness, limited ROM. Patient used a small base quad cane in the left hand for balance. . The patient was started on Plavix and aspirin. Plavix is to continue long-term. Aspirin is to continue for 3 weeks Patient seen eating breakfast. Patient complains of frequent BMs Review of Systems Review of Systems: All systems reviewed & are unremarkable except as noted in HPI and below Functional Status Ambulation Ability Ability to Ambulate 10 Feet: Contact Guard Ability to Ambulate 50 Feet With 2 Turns: Contact Guard Ambulation Assistive Devices: Walker, Wheeled Exam Narrative: Exam Narrative: Patient is alert and pleasant. Patient's head is normocephalic. Extraocular muscles are intact. Left neglect is noted. Speech is fluent. Heart rate and rhythm is regular. Lungs are clear to auscultation. Abdomen is soft nontender right upper extremity strength at the shoulder is trace with muscle wasting noted. Campus Aide strength elbow strength is 3/5 wrist and cabin service agent strength a rough least 2+ out of 5 right lower extremity strength is 4/5 left upper extremity reveals 4- out of 5 left lower extremity 3+ to 4- out of 5. Sensory loss to LUE is severe to moderate. Proprioception was poor to LUE. Patient beginning to scan to left more. Neuro: Cranial nerves: Yes Normal hearing present Objective Data Vital Signs Vital Signs: Vital Signs - 24 hr 12/01/20 22:00 12/01/20 22:30 12/01/20 22:37 Temperature 36.6 C Pulse Rate 70 66 66 Respiratory Rate 16 Blood Pressure 116/38 L 134/53 L Pulse Oximetry 97 12/02/20 06:00 12/02/20 08:00 12/02/20 10:10 Temperature 36.1 C L Pulse Rate 70 70 70 Respiratory Rate 16 16 Blood Pressure 126/57 L Pulse Oximetry 97 97 12/02/20 14:00 Temperature 36.2 C L Pulse Rate 72 Respiratory Rate 20 Blood Pressure 141/42 H Pulse Oximetry 100 Intake/Output Intake/Output: Intake & Output 11/29/20 11/30/20 12/01/20 12/02/20 23:59 23:59 23:59 23:59 Intake Total 720 840 720 600 Balance 720 840 720 600 Meds/Results Medications: Active Medications Generic Name Dose Route Start Last Admin Trade Name Freq PRN Reason Stop Dose Admin Acetaminophen 650 mg 11/28/20 13:14 11/28/20 13:48 Acetaminophen 325 Mg Tablet PO 650 mg Q6H PRN Administration Mild Pain (1-3) or Fever Albuterol 1 puff 11/24/20 18:56 Albuterol Sulfate (*Sp) Aerosol 1 Puff INHALATION QIDRT PRN Shortness Of Breath Or Wheezing Aspirin 81 mg 11/25/20 09:00 12/02/20 10:11 Aspirin 81 Mg Chewable Tablet PO 81 mg DAILY ILYA Administration Budesonide/Formoterol Fumarate 2 puff 11/24/20 20:00 12/02/20 10:1
[2020-12-02 20:31] VITALS: PULSE 69
[2020-12-02 22:00] VITALS: BP 122/56; PULSE 69; RESP 18; TEMP 36.2; O2SAT 97
[2020-12-03 06:00] VITALS: BP 130/58; PULSE 74; RESP 16; TEMP 36; O2SAT 97
[2020-12-03] MEDS: ASPIRIN 81 MG CHEWABLE TABLET PO (08:49)
[2020-12-03 08:50] VITALS: PULSE 74
[2020-12-03] MEDS: CLOPIDOGREL BISULFATE 75 MG TABLET PO (08:50)
[2020-12-03] MEDS: FUROSEMIDE 20 MG TABLET PO (08:50)
[2020-12-03] MEDS: CHOLECALCIFEROL 1,000 UNITS TABLET 2000 UNITS PO (08:50)
[2020-12-03] MEDS: SACUBITRIL/VALSARTAN 24-26 MG TABLET 1 TAB PO ×2 (08:50→21:42)
[2020-12-03] MEDS: PARoxetine 10 MG TABLET PO (08:50)
[2020-12-03] MEDS: carvediloL 3.125 MG TABLET PO ×2 (08:50→21:41)
[2020-12-03] MEDS: PANTOPRAZOLE 40 MG TABLET PO (08:50)
[2020-12-03] MEDS: EZETIMIBE 10 MG TABLET PO (08:50)
[2020-12-03] MEDS: DICLOFENAC SODIUM 1% 100 GM GEL (*BKC) 2 APPLIC TOPICAL ×4 (08:51→21:41)
--- NOTE | 2020-12-03 13:12 | WPDNEURORHBP ---
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 The patient reported being lightheaded after the fall with left leg weakness.. WORKUP: CT of the head was negative for any acute abnormalities. CT of the cervical and lumbar spine demonstrated mild compression deformity involving the superior endplate of L2 without retropulsion, and multilevel degenerative changes with osteopenia. A head MRI could not be completed due to patient's pacemaker. CTA of the head and neck showed no significant stenosis or occlusion. Echocardiogram showed left ventricular systolic function was severely reduced less than 30% with ejection fraction of 25-30%, and mild mitral stenosis with mild aortic regurgitation. Neurology diagnosed patient with new stroke based on clinical findings of left hemiplegia, left-sided numbness, left facial weakness, and functional decline below her baseline. . Of note patient's right upper extremity fractures caused long-term right upper extremity weakness, limited ROM. Patient used a small base quad cane in the left hand for balance. . The patient was started on Plavix and aspirin. Plavix is to continue long-term. Aspirin is to continue for 3 weeks Patient was frustrated with her progress yesterday. Patient did perform well. Review of Systems Review of Systems: All systems reviewed & are unremarkable except as noted in HPI and below Functional Status Ambulation Ability Ability to Ambulate 10 Feet: Contact Guard Ability to Ambulate 50 Feet With 2 Turns: Contact Guard Ambulation Assistive Devices: Walker, Wheeled Exam Narrative: Exam Narrative: Patient is alert and pleasant. Patient's head is normocephalic. Extraocular muscles are intact. Left neglect is noted. Speech is fluent. Heart rate and rhythm is regular. Lungs are clear to auscultation. Abdomen is soft nontender right upper extremity strength at the shoulder is trace with muscle wasting noted. Abap Developer strength elbow strength is 3/5 wrist and home furnishings sales representative strength a rough least 2+ out of 5 right lower extremity strength is 4/5 left upper extremity reveals 4- out of 5 left lower extremity 3+ to 4- out of 5. Sensory loss to LUE is severe to moderate. Proprioception was poor to LUE. Patient beginning to scan to left more. Patient is impulsive at times. Neuro: Cranial nerves: Yes Normal hearing present Objective Data Vital Signs Vital Signs: Vital Signs - 24 hr 12/02/20 14:00 12/02/20 20:31 12/02/20 22:00 Temperature 36.2 C L 36.2 C L Pulse Rate 72 69 69 Respiratory Rate 20 18 Blood Pressure 141/42 H 122/56 L Pulse Oximetry 100 97 12/03/20 06:00 12/03/20 08:50 Temperature 36.0 C L Pulse Rate 74 74 Respiratory Rate 16 Blood Pressure 130/58 L Pulse Oximetry 97 Intake/Output Intake/Output: Intake & Output 11/30/20 12/01/20 12/02/20 12/03/20 23:59 23:59 23:59 23:59 Intake Total 840 720 840 240 Balance 840 720 840 240 Meds/Results Medications: Active Medications Generic Name Dose Route Start Last Admin Trade Name Freq PRN Reason Stop Dose Admin Acetaminophen 650 mg 11/28/20 13:14 11/28/20 13:48 Acetaminophen 325 Mg Tablet PO 650 mg Q6H PRN Administration Mild Pain (1-3) or Fever Albuterol 1 puff 11/24/20 18:56 Albuterol Sulfate (*Sp) Aerosol 1 Puff INHALATION QIDRT PRN Shortness Of Breath Or Wheezing Aspirin 81 mg 11/25/20 09:00 12/03/20 08:49 Aspirin 81 Mg Chewable Tablet PO 81 mg DAILY ILYA Administration Budesonide/Formoterol Fumarate 2 puff 11/24/20 20:00 12/03/20 08:49 Budesonide/Form 160-4.5 Mcg (*Sp) INHALATION 2 puff Q12HRT ILYA Administration
[2020-12-03 14:00] VITALS: BP 123/49; PULSE 70; RESP 24; TEMP 36.1; O2SAT 95
[2020-12-03 21:15] VITALS: BP 121/67; PULSE 70; RESP 20; TEMP 35.7; O2SAT 100
[2020-12-03 21:41] VITALS: PULSE 82
[2020-12-04] VITALS (7 sets, daily range): BP systolic 97–111; BP diastolic 35–55; PULSE 70–74; RESP 16–20; TEMP 35.8–36.1; O2SAT 97–100
[2020-12-04] MEDS: DICLOFENAC SODIUM 1% 100 GM GEL (*BKC) 2 APPLIC TOPICAL ×4 (09:03→20:05)
[2020-12-04] MEDS: CLOPIDOGREL BISULFATE 75 MG TABLET PO (09:04)
[2020-12-04] MEDS: carvediloL 3.125 MG TABLET PO ×2 (09:04→20:07)
[2020-12-04] MEDS: FUROSEMIDE 20 MG TABLET PO (09:04)
[2020-12-04] MEDS: ASPIRIN 81 MG CHEWABLE TABLET PO (09:04)
[2020-12-04] MEDS: EZETIMIBE 10 MG TABLET PO (09:05)
[2020-12-04] MEDS: SACUBITRIL/VALSARTAN 24-26 MG TABLET 1 TAB PO ×2 (09:05→20:08)
[2020-12-04] MEDS: CHOLECALCIFEROL 1,000 UNITS TABLET 2000 UNITS PO (09:05)
[2020-12-04] MEDS: PARoxetine 10 MG TABLET PO (09:05)
[2020-12-04] MEDS: PANTOPRAZOLE 40 MG TABLET PO (09:05)
--- NOTE | 2020-12-04 14:22 | WPDNEURORHBP ---
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 The patient reported being lightheaded after the fall with left leg weakness.. WORKUP: CT of the head was negative for any acute abnormalities. CT of the cervical and lumbar spine demonstrated mild compression deformity involving the superior endplate of L2 without retropulsion, and multilevel degenerative changes with osteopenia. A head MRI could not be completed due to patient's pacemaker. CTA of the head and neck showed no significant stenosis or occlusion. Echocardiogram showed left ventricular systolic function was severely reduced less than 30% with ejection fraction of 25-30%, and mild mitral stenosis with mild aortic regurgitation. Neurology diagnosed patient with new stroke based on clinical findings of left hemiplegia, left-sided numbness, left facial weakness, and functional decline below her baseline. . Of note patient's right upper extremity fractures caused long-term right upper extremity weakness, limited ROM. Patient used a small base quad cane in the left hand for balance. . The patient was started on Plavix and aspirin. Plavix is to continue long-term. Aspirin is to continue for 3 weeks Patient without complaints Review of Systems Review of Systems: All systems reviewed & are unremarkable except as noted in HPI and below Functional Status Ambulation Ability Ability to Ambulate 10 Feet: Standby Assistance Ability to Ambulate 50 Feet With 2 Turns: Contact Guard Ambulation Assistive Devices: Walker, Wheeled Exam Narrative: Exam Narrative: Patient is alert and pleasant. Patient's head is normocephalic. Extraocular muscles are intact. Left neglect is noted. Speech is fluent. Heart rate and rhythm is regular. Lungs are clear to auscultation. Abdomen is soft nontender right upper extremity strength at the shoulder is trace with muscle wasting noted. Rib Sawyer strength elbow strength is 3/5 wrist and information technology consultant strength a rough least 2+ out of 5 right lower extremity strength is 4/5 left upper extremity reveals 4- out of 5 left lower extremity 3+ to 4- out of 5. Sensory loss to LUE is severe to moderate. Proprioception was poor to LUE. LLE proprioception is returning. Neuro: Cranial nerves: Yes Normal hearing present Objective Data Vital Signs Vital Signs: Vital Signs - 24 hr 12/03/20 21:15 12/03/20 21:41 12/04/20 06:00 Temperature 35.7 C L 35.8 C L Pulse Rate 70 82 74 Respiratory Rate 20 20 Blood Pressure 121/67 111/44 L Pulse Oximetry 100 97 12/04/20 08:00 12/04/20 09:04 12/04/20 13:40 Temperature 36.1 C L Pulse Rate 74 74 71 Respiratory Rate 20 16 Blood Pressure 97/55 L Pulse Oximetry 97 99 Intake/Output Intake/Output: Intake & Output 12/01/20 12/02/20 12/03/20 12/04/20 23:59 23:59 23:59 23:59 Intake Total 720 840 720 720 Balance 720 840 720 720 Meds/Results Medications: Active Medications Generic Name Dose Route Start Last Admin Trade Name Freq PRN Reason Stop Dose Admin Acetaminophen 650 mg 11/28/20 13:14 11/28/20 13:48 Acetaminophen 325 Mg Tablet PO 650 mg Q6H PRN Administration Mild Pain (1-3) or Fever Albuterol 1 puff 11/24/20 18:56 Albuterol Sulfate (*Sp) Aerosol 1 Puff INHALATION QIDRT PRN Shortness Of Breath Or Wheezing Aspirin 81 mg 11/25/20 09:00 12/04/20 09:04 Aspirin 81 Mg Chewable Tablet PO 81 mg DAILY ILYA Administration Budesonide/Formoterol Fumarate 2 puff 11/24/20 20:00 12/04/20 09:03 Budesonide/Form 160-4.5 Mcg (*Sp) INHALATION 2 puff Q12HRT ILYA Administration Carvedilol 3.125 mg 11/24/20 21:00 12/04/20 09:04 Car
[2020-12-04] MEDS: ACETAMINOPHEN 325 MG TABLET 650 MG PO (20:12)
[2020-12-05 05:37] VITALS: BP 130/62; PULSE 70; RESP 16; TEMP 36.2; O2SAT 95
[2020-12-05 08:47] VITALS: PULSE 70
[2020-12-05] MEDS: FUROSEMIDE 20 MG TABLET PO (08:47)
[2020-12-05] MEDS: PARoxetine 10 MG TABLET PO (08:47)
[2020-12-05] MEDS: carvediloL 3.125 MG TABLET PO ×2 (08:47→20:36)
[2020-12-05] MEDS: PANTOPRAZOLE 40 MG TABLET PO (08:47)
[2020-12-05] MEDS: EZETIMIBE 10 MG TABLET PO (08:47)
[2020-12-05] MEDS: SACUBITRIL/VALSARTAN 24-26 MG TABLET 1 TAB PO ×2 (08:47→20:37)
[2020-12-05] MEDS: CHOLECALCIFEROL 1,000 UNITS TABLET 2000 UNITS PO (08:47)
[2020-12-05] MEDS: ASPIRIN 81 MG CHEWABLE TABLET PO (08:47)
[2020-12-05] MEDS: CLOPIDOGREL BISULFATE 75 MG TABLET PO (08:47)
[2020-12-05] MEDS: DICLOFENAC SODIUM 1% 100 GM GEL (*BKC) 2 APPLIC TOPICAL ×4 (08:48→20:37)
--- NOTE | 2020-12-05 09:19 | WPDNEURORHBP ---
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 The patient reported being lightheaded after the fall with left leg weakness.. WORKUP: CT of the head was negative for any acute abnormalities. CT of the cervical and lumbar spine demonstrated mild compression deformity involving the superior endplate of L2 without retropulsion, and multilevel degenerative changes with osteopenia. A head MRI could not be completed due to patient's pacemaker. CTA of the head and neck showed no significant stenosis or occlusion. Echocardiogram showed left ventricular systolic function was severely reduced less than 30% with ejection fraction of 25-30%, and mild mitral stenosis with mild aortic regurgitation. Neurology diagnosed patient with new stroke based on clinical findings of left hemiplegia, left-sided numbness, left facial weakness, and functional decline below her baseline. Of note patient's right upper extremity fractures caused long-term right upper extremity weakness, limited ROM. Patient used a small base quad cane in the left hand for balance prior to this CVA. The patient was started on Plavix and aspirin. Plavix is to continue long-term. Aspirin is to continue for 3 weeks Patient asking about mammogram. Consider mammogram at later date in outpatient setting per Dr Navarrete PCP. Patient was asking timeframe to return to driving. At this time, patient is not to drive until full recovery of left neglect occurs Review of Systems Review of Systems: All systems reviewed & are unremarkable except as noted in HPI and below Functional Status Ambulation Ability Ability to Ambulate 10 Feet: Contact Guard Ability to Ambulate 50 Feet With 2 Turns: Contact Guard Ambulation Assistive Devices: Walker, Wheeled Exam Narrative: Exam Narrative: Patient is alert and pleasant. Patient's head is normocephalic. Extraocular muscles are intact. Left neglect is noted. Speech is fluent. Heart rate and rhythm is regular. Lungs are clear to auscultation. Abdomen is soft nontender right upper extremity strength at the shoulder is trace with muscle wasting noted. Checkering Machine Operator strength elbow strength is 3/5 wrist and medical lab specialist strength a rough least 2+ out of 5 right lower extremity strength is 4/5 left upper extremity reveals 4- out of 5 left lower extremity 3+ to 4- out of 5. Sensory loss to LUE is severe to moderate. Proprioception was poor to LUE. LLE proprioception is returning. Patient able to grasp walker and needs reminders for foot placement on LLE Neuro: Cranial nerves: Yes Normal hearing present Objective Data Vital Signs Vital Signs: Vital Signs - 24 hr 12/04/20 13:40 12/04/20 20:00 12/04/20 20:07 Temperature 36.1 C L Pulse Rate 71 70 71 Respiratory Rate 16 16 Blood Pressure 97/55 L Pulse Oximetry 99 100 12/04/20 21:46 12/05/20 05:37 12/05/20 08:47 Temperature 35.9 C L 36.2 C L Pulse Rate 70 70 70 Respiratory Rate 16 16 Blood Pressure 102/35 L 130/62 Pulse Oximetry 100 95 Intake/Output Intake/Output: Intake & Output 12/02/20 12/03/20 12/04/20 12/05/20 23:59 23:59 23:59 23:59 Intake Total 840 720 960 480 Balance 840 720 960 480 Meds/Results Medications: Active Medications Generic Name Dose Route Start Last Admin Trade Name Freq PRN Reason Stop Dose Admin Acetaminophen 650 mg 11/28/20 13:14 12/04/20 20:12 Acetaminophen 325 Mg Tablet PO 650 mg Q6H PRN Administration Mild Pain (1-3) or Fever Albuterol 1 puff 11/24/20 18:56 Albuterol Sulfate (*Sp) Aerosol 1 Puff INHALATION QIDRT PRN Shortness Of Breath Or Wheezing Aspirin 81 mg 11/25/20 09:00 12/05/20 08:4
[2020-12-05 14:00] VITALS: BP 123/40; PULSE 73; RESP 18; TEMP 36; O2SAT 100
[2020-12-05 20:00] VITALS: PULSE 70; RESP 18; O2SAT 96
[2020-12-05 20:36] VITALS: PULSE 70
[2020-12-05 21:47] VITALS: BP 107/41; PULSE 70; RESP 18; TEMP 36.5; O2SAT 96
[2020-12-06 05:45] VITALS: BP 140/71; PULSE 72; RESP 16; TEMP 36.3; O2SAT 97
[2020-12-06 08:20] VITALS: PULSE 72
[2020-12-06] MEDS: EZETIMIBE 10 MG TABLET PO (08:20)
[2020-12-06] MEDS: CLOPIDOGREL BISULFATE 75 MG TABLET PO (08:20)
[2020-12-06] MEDS: SACUBITRIL/VALSARTAN 24-26 MG TABLET 1 TAB PO ×2 (08:20→20:06)
[2020-12-06] MEDS: PARoxetine 10 MG TABLET PO (08:20)
[2020-12-06] MEDS: carvediloL 3.125 MG TABLET PO ×2 (08:20→20:04)
[2020-12-06] MEDS: CHOLECALCIFEROL 1,000 UNITS TABLET 2000 UNITS PO (08:20)
[2020-12-06] MEDS: PANTOPRAZOLE 40 MG TABLET PO (08:20)
[2020-12-06] MEDS: ASPIRIN 81 MG CHEWABLE TABLET PO (08:20)
[2020-12-06] MEDS: DICLOFENAC SODIUM 1% 100 GM GEL (*BKC) 2 APPLIC TOPICAL ×4 (08:20→20:07)
[2020-12-06] MEDS: FUROSEMIDE 20 MG TABLET PO (08:20)
--- NOTE | 2020-12-06 08:38 | WPDNEURORHBP ---
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 The patient reported being lightheaded after the fall with left leg weakness.. WORKUP: CT of the head was negative for any acute abnormalities. CT of the cervical and lumbar spine demonstrated mild compression deformity involving the superior endplate of L2 without retropulsion, and multilevel degenerative changes with osteopenia. A head MRI could not be completed due to patient's pacemaker. CTA of the head and neck showed no significant stenosis or occlusion. Echocardiogram showed left ventricular systolic function was severely reduced less than 30% with ejection fraction of 25-30%, and mild mitral stenosis with mild aortic regurgitation. Neurology diagnosed patient with new stroke based on clinical findings of left hemiplegia, left-sided numbness, left facial weakness, and functional decline below her baseline. Of note patient's right upper extremity fractures caused long-term right upper extremity weakness, limited ROM. Patient used a small base quad cane in the left hand for balance prior to this CVA. The patient was started on Plavix and aspirin. Plavix is to continue long-term. Aspirin is to continue for 3 weeks Patient asking about mammogram. Consider mammogram at later date in outpatient setting per Dr Navarrete PCP. Patient was asking timeframe to return to driving. At this time, patient is not to drive until full recovery of left neglect occurs. Patient happy about sensation returning to LUE ( tingling) Review of Systems Review of Systems: All systems reviewed & are unremarkable except as noted in HPI and below Functional Status Ambulation Ability Ability to Ambulate 10 Feet: Contact Guard Ability to Ambulate 50 Feet With 2 Turns: Contact Guard Ambulation Assistive Devices: Walker, Wheeled Exam Narrative: Exam Narrative: Patient is alert and pleasant. Patient's head is normocephalic. Extraocular muscles are intact. Left neglect is noted. Speech is fluent. Heart rate and rhythm is regular. Lungs are clear to auscultation. Abdomen is soft nontender right upper extremity strength at the shoulder is trace with muscle wasting noted. Shop Technician strength elbow strength is 3/5 wrist and mold dresser strength a rough least 2+ out of 5 right lower extremity strength is 4/5 left upper extremity reveals 4- out of 5 left lower extremity 3+ to 4- out of 5. Sensory loss to LUE is severe to moderate. Proprioception was poor to LUE. LLE proprioception is returning. Patient able to grasp walker and needs reminders for foot placement on LLE Neuro: Cranial nerves: Yes Normal hearing present Objective Data Vital Signs Vital Signs: Vital Signs - 24 hr 12/05/20 08:47 12/05/20 14:00 12/05/20 20:00 Temperature 36.0 C L Pulse Rate 70 73 70 Respiratory Rate 18 18 Blood Pressure 123/40 L Pulse Oximetry 100 96 12/05/20 20:36 12/05/20 21:47 12/06/20 05:45 Temperature 36.5 C 36.3 C L Pulse Rate 70 70 72 Respiratory Rate 18 16 Blood Pressure 107/41 L 140/71 Pulse Oximetry 96 97 12/06/20 08:20 Temperature Pulse Rate 72 Respiratory Rate Blood Pressure Pulse Oximetry Intake/Output Intake/Output: Intake & Output 12/03/20 12/04/20 12/05/20 12/06/20 23:59 23:59 23:59 23:59 Intake Total 921 781 4671 Balance 846 082 2500 Meds/Results Medications: Active Medications Generic Name Dose Route Start Last Admin Trade Name Freq PRN Reason Stop Dose Admin Acetaminophen 650 mg 11/28/20 13:14 12/04/20 20:12 Acetaminophen 325 Mg Tablet PO 650 mg Q6H PRN Administration Mild Pain (1-3) or Fever Albuterol 1 puff 11/24/20 18
[2020-12-06 14:00] VITALS: BP 113/51; PULSE 70; RESP 18; TEMP 35.9; O2SAT 96
[2020-12-06 20:04] VITALS: PULSE 80
[2020-12-06 21:07] VITALS: BP 143/45; PULSE 69; RESP 16; TEMP 36.1; O2SAT 100
[2020-12-07 06:00] VITALS: BP 117/81; PULSE 70; RESP 16; TEMP 36.6; O2SAT 97
[2020-12-07 08:00] VITALS: PULSE 70; RESP 16; O2SAT 97
[2020-12-07 08:59] VITALS: PULSE 70
[2020-12-07] MEDS: PARoxetine 10 MG TABLET PO (08:59)
[2020-12-07] MEDS: carvediloL 3.125 MG TABLET PO ×2 (08:59→22:29)
[2020-12-07] MEDS: EZETIMIBE 10 MG TABLET PO (09:00)
[2020-12-07] MEDS: ASPIRIN 81 MG CHEWABLE TABLET PO (09:00)
[2020-12-07] MEDS: PANTOPRAZOLE 40 MG TABLET PO (09:00)
[2020-12-07] MEDS: CLOPIDOGREL BISULFATE 75 MG TABLET PO (09:00)
[2020-12-07] MEDS: SACUBITRIL/VALSARTAN 24-26 MG TABLET 1 TAB PO ×2 (09:00→22:30)
[2020-12-07] MEDS: FUROSEMIDE 20 MG TABLET PO (09:00)
[2020-12-07] MEDS: DICLOFENAC SODIUM 1% 100 GM GEL (*BKC) 2 APPLIC TOPICAL ×4 (09:01→22:30)
[2020-12-07] MEDS: CHOLECALCIFEROL 1,000 UNITS TABLET 2000 UNITS PO (09:01)
--- NOTE | 2020-12-07 10:39 | WPDNEURORHBP ---
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 The patient reported being lightheaded after the fall with left leg weakness.. WORKUP: CT of the head was negative for any acute abnormalities. CT of the cervical and lumbar spine demonstrated mild compression deformity involving the superior endplate of L2 without retropulsion, and multilevel degenerative changes with osteopenia. A head MRI could not be completed due to patient's pacemaker. CTA of the head and neck showed no significant stenosis or occlusion. Echocardiogram showed left ventricular systolic function was severely reduced less than 30% with ejection fraction of 25-30%, and mild mitral stenosis with mild aortic regurgitation. Neurology diagnosed patient with new stroke based on clinical findings of left hemiplegia, left-sided numbness, left facial weakness, and functional decline below her baseline. Of note patient's right upper extremity fractures caused long-term right upper extremity weakness, limited ROM. Patient used a small base quad cane in the left hand for balance prior to this CVA. The patient was started on Plavix and aspirin. Plavix is to continue long-term. Aspirin is to continue for 3 weeks Patient asking about mammogram. Consider mammogram at later date in outpatient setting per Dr Navarrete PCP. Patient was asking timeframe to return to driving. At this time, patient is not to drive until full recovery of left neglect occurs. Patient admits to further sensation returning to L side. Review of Systems Review of Systems: All systems reviewed & are unremarkable except as noted in HPI and below Functional Status Ambulation Ability Ability to Ambulate 10 Feet: Contact Guard Ability to Ambulate 50 Feet With 2 Turns: Contact Guard Ambulation Assistive Devices: Walker, Wheeled Exam Narrative: Exam Narrative: Patient is alert and pleasant. Patient's head is normocephalic. Extraocular muscles are intact. Left neglect is noted. Speech is fluent. Heart rate and rhythm is regular. Lungs are clear to auscultation. Abdomen is soft nontender right upper extremity strength at the shoulder is trace with muscle wasting noted. Alcohol Still Operator strength elbow strength is 3/5 wrist and managed services consultant strength a rough least 2+ out of 5 right lower extremity strength is 4/5 left upper extremity reveals 4- out of 5 left lower extremity 3+ to 4- out of 5. Sensory loss to LUE is moderately impaired. Proprioception was poor to LUE. LLE proprioception is returning. Patient able to grasp walker and needs reminders for foot placement on LLE Neuro: Cranial nerves: Yes Normal hearing present Objective Data Vital Signs Vital Signs: Vital Signs - 24 hr 12/06/20 14:00 12/06/20 20:04 12/06/20 21:07 Temperature 35.9 C L 36.1 C L Pulse Rate 70 80 69 Respiratory Rate 18 16 Blood Pressure 113/51 L 143/45 H Pulse Oximetry 96 100 12/07/20 06:00 12/07/20 08:59 Temperature 36.6 C Pulse Rate 70 70 Respiratory Rate 16 Blood Pressure 117/81 Pulse Oximetry 97 Intake/Output Intake/Output: Intake & Output 12/04/20 12/05/20 12/06/20 12/07/20 23:59 23:59 23:59 23:59 Intake Total 960 1200 1200 240 Balance 960 1200 1200 240 Meds/Results Medications: Active Medications Generic Name Dose Route Start Last Admin Trade Name Freq PRN Reason Stop Dose Admin Acetaminophen 650 mg 11/28/20 13:14 12/04/20 20:12 Acetaminophen 325 Mg Tablet PO 650 mg Q6H PRN Administration Mild Pain (1-3) or Fever Albuterol 1 puff 11/24/20 18:56 Albuterol Sulfate (*Sp) Aerosol 1 Puff INHALATION QIDRT PRN Shortness Of Breath Or Wheezing Aspirin
--- NOTE | 2020-12-07 12:59 | PCNFU ---
Nutrition Follow-Up Complete: Inadequate oral food and beverage intake related to CVA as evidence by decreased appetite. Goal: Meet estimated nutritional needs. Goal has been achieved. Will continue to meet goal. Pt current nutrition is Heart Healthy. Last recorded weight is 68.5 kg. Bowel Motility: Last BM: 12/06 Labs Reviewed: Hgb 10.4, Hct 32.5, Alb 3.5, Na 136, K 4.3, GFR 55, BUN 34 Cr 1.00 Glu 93 Meds Noted: Tylenol PRN, Albuterol PRN, Aspirin, Symbicort inhaler, Coreg, Plavix, Voltaren 1% gel, Zetia, Lasix tablet, Lasix tablet, Protonix, Paxil, Sacubitril/Valsartan, Vitamin D. Additional Notes: Nutrition follow up. Patient reports having a good appetite. 75 to 100% of meals are being consumed. Agree with Heart Healthy diet order. Follow up in 7 days.
[2020-12-07 14:00] VITALS: BP 120/46; PULSE 66; RESP 16; TEMP 36.3; O2SAT 97
--- NOTE | 2020-12-07 14:27 | PCNSR ---
On 12/07/20, the student,Janet Fall, provided care and completed [facility] documentation on this patient. I have reviewed the student's documentation and agree with the findings.
[2020-12-07 21:39] VITALS: BP 147/58; PULSE 72; RESP 16; TEMP 35.8; O2SAT 98
[2020-12-07 22:29] VITALS: PULSE 72
[2020-12-08 05:58] VITALS: BP 142/48; PULSE 68; RESP 16; TEMP 36.1; O2SAT 97
[2020-12-08 08:11] VITALS: PULSE 68
[2020-12-08] MEDS: FUROSEMIDE 20 MG TABLET PO (08:11)
[2020-12-08] MEDS: ASPIRIN 81 MG CHEWABLE TABLET PO (08:11)
[2020-12-08] MEDS: PANTOPRAZOLE 40 MG TABLET PO (08:11)
[2020-12-08] MEDS: CHOLECALCIFEROL 1,000 UNITS TABLET 2000 UNITS PO (08:11)
[2020-12-08] MEDS: EZETIMIBE 10 MG TABLET PO (08:11)
[2020-12-08] MEDS: SACUBITRIL/VALSARTAN 24-26 MG TABLET 1 TAB PO ×2 (08:11→20:46)
[2020-12-08] MEDS: CLOPIDOGREL BISULFATE 75 MG TABLET PO (08:11)
[2020-12-08] MEDS: DICLOFENAC SODIUM 1% 100 GM GEL (*BKC) 2 APPLIC TOPICAL ×4 (08:11→20:58)
[2020-12-08] MEDS: carvediloL 3.125 MG TABLET PO ×2 (08:11→20:47)
[2020-12-08] MEDS: PARoxetine 10 MG TABLET PO (08:11)
--- NOTE | 2020-12-08 09:51 | PTEVAL ---
Physical Therapy Evaluation Potential for Rehabilitation: Treatment Plan: I evaluated Michelle Jeronimo and recommend the outlined treatment plan:
--- NOTE | 2020-12-08 09:52 | PCPTNOTE ---
Michelle Marin Nix was evaluated for a wheeled walker on 12/08/2020 by this physical therapist. The wheeled walker will resolve patient's mobility limitations and will be used for ADL's within the home. The patient can safely use the wheeled walker. ?The wheeled walker will resolve the patient?s mobility deficits, including absent L proprioception, absent L body light touch and deep pressure as well as balance and endurance deficits.
[2020-12-08] MEDS: ACETAMINOPHEN 325 MG TABLET 650 MG PO (13:23)
[2020-12-08 14:00] VITALS: BP 117/52; PULSE 70; RESP 16; TEMP 36.1; O2SAT 100
--- NOTE | 2020-12-08 14:26 | WPDNEURORHBP ---
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 The patient reported being lightheaded after the fall with left leg weakness.. WORKUP: CT of the head was negative for any acute abnormalities. CT of the cervical and lumbar spine demonstrated mild compression deformity involving the superior endplate of L2 without retropulsion, and multilevel degenerative changes with osteopenia. A head MRI could not be completed due to patient's pacemaker. CTA of the head and neck showed no significant stenosis or occlusion. Echocardiogram showed left ventricular systolic function was severely reduced less than 30% with ejection fraction of 25-30%, and mild mitral stenosis with mild aortic regurgitation. Neurology diagnosed patient with new stroke based on clinical findings of left hemiplegia, left-sided numbness, left facial weakness, and functional decline below her baseline. Of note patient's right upper extremity fractures caused long-term right upper extremity weakness, limited ROM. Patient used a small base quad cane in the left hand for balance prior to this CVA. The patient was started on Plavix and aspirin. Plavix is to continue long-term. Aspirin is to continue for 3 weeks Patient asking about mammogram. Consider mammogram at later date in outpatient setting per Dr Navarrete PCP. Patient was asking timeframe to return to driving. At this time, patient is not to drive until full recovery of left neglect occurs. Patient admits to further sensation returning to L side. Functional Status Ambulation Ability Ability to Ambulate 10 Feet: Standby Assistance Ability to Ambulate 50 Feet With 2 Turns: Standby Assistance Ambulation Assistive Devices: Walker, Wheeled Exam Narrative: Exam Narrative: Patient is alert and pleasant. Patient's head is normocephalic. Extraocular muscles are intact. Left neglect is noted. Speech is fluent. Heart rate and rhythm is regular. Lungs are clear to auscultation. Abdomen is soft nontender right upper extremity strength at the shoulder is trace with muscle wasting noted. Insurance Producer strength elbow strength is 3/5 wrist and crew chief strength a rough least 2+ out of 5 right lower extremity strength is 4/5 left upper extremity reveals 4- out of 5 left lower extremity 3+ to 4- out of 5. Sensory loss to LUE is moderately impaired. Proprioception was poor to LUE. LLE proprioception is returning. Patient able to grasp walker and needs reminders for foot placement on LLE. Patient with better understanding of her limitation.s Neuro: Cranial nerves: Yes Normal hearing present Objective Data Vital Signs Vital Signs: Vital Signs - 24 hr 12/07/20 21:39 12/07/20 22:29 12/08/20 05:58 Temperature 35.8 C L 36.1 C L Pulse Rate 72 72 68 Respiratory Rate 16 16 Blood Pressure 147/58 H 142/48 H Pulse Oximetry 98 97 12/08/20 08:11 Temperature Pulse Rate 68 Respiratory Rate Blood Pressure Pulse Oximetry Intake/Output Intake/Output: Intake & Output 12/05/20 12/06/20 12/07/20 12/08/20 23:59 23:59 23:59 23:59 Intake Total 1200 1200 840 480 Balance 1200 1200 840 480 Meds/Results Medications: Active Medications Generic Name Dose Route Start Last Admin Trade Name Freq PRN Reason Stop Dose Admin Acetaminophen 650 mg 11/28/20 13:14 12/08/20 13:23 Acetaminophen 325 Mg Tablet PO 650 mg Q6H PRN Administration Mild Pain (1-3) or Fever Albuterol 1 puff 11/24/20 18:56 Albuterol Sulfate (*Sp) Aerosol 1 Puff INHALATION QIDRT PRN Shortness Of Breath Or Wheezing Aspirin 81 mg 11/25/20 09:00 12/08/20 08:11 Aspirin 81 Mg Chewable Tablet PO 81 mg DA
[2020-12-08 20:30] VITALS: PULSE 70; RESP 18; O2SAT 98
[2020-12-08 20:47] VITALS: PULSE 64
[2020-12-08 21:00] VITALS: BP 154/64; PULSE 70; RESP 18; TEMP 36.8; O2SAT 98
[2020-12-09 05:00] LABS: Basophils Absolute Auto 0.1 K/mm3 (0.0-0.1); Basophils Percent Auto 1.1 % (0.2-1.2); Eosinophils Absolute Auto 0.3 K/mm3 (0-0.3); Eosinophils Percent Auto 5.2 % (0-4.4); Hematocrit 33.8 % (37.0-47.0); Hemoglobin 10.9 g/dL (12.0-15.0); Immature Granulocyte Absolute 0.01 K/mm3 (0.00-0.031); Immature Granulocyte Percent A 0.2 % (0-0.5); Lymphocytes Absolute Auto 2.74 K/mm3 (0.9-3.2); Lymphocytes Percent Auto 41.7 % (18.3-44.2); Mean Corpuscular HGB Conc 32.2 g/dl (32-36); Mean Corpuscular Hemoglobin 28.7 pg (26-34); Mean Corpuscular Volume 88.9 fl (80-100); Mean Platelet Volume 10.7 fl (7.4-10.4); Monocytes Absolute Auto 0.7 K/mm3 (0.1-0.6); Monocytes Percent Auto 11.1 % (2.6-8.5); Neutrophils Absolute Auto 2.7 K/mm3 (1.3-6.7); Neutrophils Percent Auto 40.7 % (45.5-73.1); Platelet Count Result 153 k/mm3 (150-375); Red Cell Distribution Width 14.2 % (11.5-14.5); White Blood Count 6.6 K/mm3 (4.5-10.0)
[2020-12-09 05:10] LABS: Alanine Aminotransferase 25 U/L (4-35); Albumin Level 3.5 g/dL (3.5-5.1); Alkaline Phosphatase 87 U/L (38-126); Anion Gap 1 mmol/L (8-16); Aspartate Amino Transferase 37 U/L (14-36); Bilirubin,Total 0.4 mg/dL (0.2-1.3); Blood Urea Nitrogen 26 mg/dL (7-17); Calcium 9.2 mg/dL (8.4-10.2); Carbon Dioxide 29 mmol/L (22-30); Chloride 108 mmol/L (98-107); Estimated CRCL calculation 46 ml/min; Estimated Glomerular Filt Rate > 60; Glucose 90 mg/dL (65-105); Potassium 5.1 mmol/L (3.4-5.0); Sodium 138 mmol/L (137-145)
[2020-12-09 06:00] VITALS: BP 130/60; PULSE 70; RESP 16; TEMP 36.7; O2SAT 98
[2020-12-09] MEDS: DICLOFENAC SODIUM 1% 100 GM GEL (*BKC) 2 APPLIC TOPICAL ×4 (08:52→21:36)
[2020-12-09] MEDS: FUROSEMIDE 20 MG TABLET PO (08:52)
[2020-12-09] MEDS: CLOPIDOGREL BISULFATE 75 MG TABLET PO (08:53)
[2020-12-09 08:54] VITALS: PULSE 70
[2020-12-09] MEDS: EZETIMIBE 10 MG TABLET PO (08:54)
[2020-12-09] MEDS: carvediloL 3.125 MG TABLET PO ×2 (08:54→21:35)
[2020-12-09] MEDS: SACUBITRIL/VALSARTAN 24-26 MG TABLET 1 TAB PO ×2 (08:55→21:36)
[2020-12-09] MEDS: ASPIRIN 81 MG CHEWABLE TABLET PO (08:55)
[2020-12-09] MEDS: PARoxetine 10 MG TABLET PO (08:56)
[2020-12-09] MEDS: PANTOPRAZOLE 40 MG TABLET PO (08:56)
[2020-12-09] MEDS: CHOLECALCIFEROL 1,000 UNITS TABLET 2000 UNITS PO (08:56)
--- NOTE | 2020-12-09 10:21 | PCPTNOTE ---
Aaliyah Olvera PT completed an inpatient rehab wheelchair evaluation on Michelle Jeronimo on 12/09/2020. The patient is unable to safely and independently ambulate household distances due to their current impairments. Their diagnosis is CVA and their impairments include decreased strength, decreased endurance, decreased range of motion, decreased balance, lower extremity weakness, and absent L body proprioception and light touch/deep pressure sensation. Michelle's weight bearing status is weight-bearing as tolerated on the bilateral lower legs. The patient demonstrates significant functional mobility limitations that impair their ability to participate in mobility-related activities of daily living (MRADLs), including toileting, feeding, dressing, grooming, and bathing in the customary locations in the home. These limitations cannot be sufficiently resolved by the use of an appropriately fitted cane or walker. It is recommended that the patient utilize a wheelchair for functional mobility within the home in order to facilitate optimal safety, independence and participation in all MRADL's and adequately access their home environment on a regular basis. The patient's home provides adequate access between rooms, maneuvering space, and surfaces to accommodate the recommended wheelchair. The use of a wheelchair for functional mobility is strongly recommended and the patient is receptive to using the wheelchair. The use of this wheelchair will significantly improve the patient's ability to participate in MRADLS and the patient will use it on a regular basis in the home. This will facilitate optimal safety, independence, and participation. The patient has demonstrated sufficient physical and mental capabilities needed to safely propel a manual wheelchair that is provided in the home during a typical day. Recommended Wheelchair Frame: standard Recommended Wheelchair Size: 16x16 (pt height 5 ft 2 in) Recommended Wheelchair Cushion: standard Wheelchair Leg Recommendations: Swing away leg rests -Anti-tippers are recommended due to patient demonstrating increased risk for falls. They would benefit from anti-tippers with added safety and stabilization. Aaliyah Olvera DPT 12/09/20 Evaluating Therapist Date I agree with and certify that the above recommendation is medically necessary. Referring Physician Date I agree with and certify that the above recommendation is medically necessary. Referring Physician Date
[2020-12-09 14:00] VITALS: BP 129/54; PULSE 71; RESP 18; TEMP 36; O2SAT 99
--- NOTE | 2020-12-09 15:59 | WPDNEURORHBP ---
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 The patient reported being lightheaded after the fall with left leg weakness.. WORKUP: CT of the head was negative for any acute abnormalities. CT of the cervical and lumbar spine demonstrated mild compression deformity involving the superior endplate of L2 without retropulsion, and multilevel degenerative changes with osteopenia. A head MRI could not be completed due to patient's pacemaker. CTA of the head and neck showed no significant stenosis or occlusion. Echocardiogram showed left ventricular systolic function was severely reduced less than 30% with ejection fraction of 25-30%, and mild mitral stenosis with mild aortic regurgitation. Neurology diagnosed patient with new stroke based on clinical findings of left hemiplegia, left-sided numbness, left facial weakness, and functional decline below her baseline. Of note patient's right upper extremity fractures caused long-term right upper extremity weakness, limited ROM. Patient used a small base quad cane in the left hand for balance prior to this CVA. The patient was started on Plavix and aspirin. Plavix is to continue long-term. Aspirin is to continue for 3 weeks Patient asking about mammogram. Consider mammogram at later date in outpatient setting per Dr Navarrete PCP. Patient was asking timeframe to return to driving. At this time, patient is not to drive until full recovery of left neglect occurs. Patient admits to further sensation returning to L side. Son is present for caregiver training. Review of Systems Review of Systems: All systems reviewed & are unremarkable except as noted in HPI and below Functional Status Ambulation Ability Ability to Ambulate 10 Feet: Standby Assistance Ability to Ambulate 50 Feet With 2 Turns: Contact Guard Ambulation Assistive Devices: Walker, Wheeled Transfers Ability Ability to Transfer In/Out of Chair: Standby Assistance Exam Narrative: Exam Narrative: Patient is alert and pleasant. Patient's head is normocephalic. Extraocular muscles are intact. Left neglect is noted. Speech is fluent. Heart rate and rhythm is regular. Lungs are clear to auscultation. Abdomen is soft nontender right upper extremity strength at the shoulder is trace with muscle wasting noted. Operations Professional strength elbow strength is 3/5 wrist and licensed pesticide applicator strength a rough least 2+ out of 5 right lower extremity strength is 4/5 left upper extremity reveals 4- out of 5 left lower extremity 3+ to 4- out of 5. Sensory loss to LUE is moderately impaired. Proprioception was poor to LUE. LLE proprioception is returning. Patient able to grasp walker and needs reminders for foot placement on LLE. Patient with better understanding of her limitations. Patient walking in cross with Nghia, son observing Neuro: Cranial nerves: Yes Normal hearing present Objective Data Vital Signs Vital Signs: Vital Signs - 24 hr 12/08/20 20:30 12/08/20 20:47 12/08/20 21:00 Temperature 36.8 C Pulse Rate 70 64 70 Respiratory Rate 18 18 Blood Pressure 154/64 H Pulse Oximetry 98 98 12/09/20 06:00 12/09/20 08:54 12/09/20 14:00 Temperature 36.7 C 36.0 C L Pulse Rate 70 70 71 Respiratory Rate 16 18 Blood Pressure 130/60 129/54 L Pulse Oximetry 98 99 Intake/Output Intake/Output: Intake & Output 12/06/20 12/07/20 12/08/20 12/09/20 23:59 23:59 23:59 23:59 Intake Total 1200 840 960 480 Balance 1200 840 960 480 Meds/Results Medications: Active Medications Generic Name Dose Route Start Last Admin Trade Name Freq PRN Reason Stop Dose Admin Acetaminophen 650 mg 11/28/20 13:14 12/08/20 13:23 A
[2020-12-09 20:30] VITALS: PULSE 70; RESP 18; O2SAT 99
[2020-12-09 21:35] VITALS: PULSE 70
[2020-12-09 22:00] VITALS: BP 136/52; PULSE 70; RESP 16; TEMP 36.3; O2SAT 96
[2020-12-10 06:00] VITALS: BP 136/58; PULSE 72; RESP 18; TEMP 36.6; O2SAT 99
[2020-12-10] MEDS: PANTOPRAZOLE 40 MG TABLET PO (08:37)
[2020-12-10 08:38] VITALS: PULSE 72
[2020-12-10] MEDS: EZETIMIBE 10 MG TABLET PO (08:38)
[2020-12-10] MEDS: carvediloL 3.125 MG TABLET PO ×2 (08:38→20:22)
[2020-12-10] MEDS: SACUBITRIL/VALSARTAN 24-26 MG TABLET 1 TAB PO ×2 (08:38→20:23)
[2020-12-10] MEDS: FUROSEMIDE 20 MG TABLET PO (08:38)
[2020-12-10] MEDS: ASPIRIN 81 MG CHEWABLE TABLET PO (08:38)
[2020-12-10] MEDS: CLOPIDOGREL BISULFATE 75 MG TABLET PO (08:38)
[2020-12-10] MEDS: DICLOFENAC SODIUM 1% 100 GM GEL (*BKC) 2 APPLIC TOPICAL ×4 (08:38→20:21)
[2020-12-10] MEDS: PARoxetine 10 MG TABLET PO (08:38)
[2020-12-10] MEDS: CHOLECALCIFEROL 1,000 UNITS TABLET 2000 UNITS PO (08:38)
[2020-12-10 14:00] VITALS: BP 101/43; PULSE 73; RESP 18; TEMP 36.4; O2SAT 96
--- NOTE | 2020-12-10 15:14 | WPDNEURORHBP ---
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 The patient reported being lightheaded after the fall with left leg weakness.. WORKUP: CT of the head was negative for any acute abnormalities. CT of the cervical and lumbar spine demonstrated mild compression deformity involving the superior endplate of L2 without retropulsion, and multilevel degenerative changes with osteopenia. A head MRI could not be completed due to patient's pacemaker. CTA of the head and neck showed no significant stenosis or occlusion. Echocardiogram showed left ventricular systolic function was severely reduced less than 30% with ejection fraction of 25-30%, and mild mitral stenosis with mild aortic regurgitation. Neurology diagnosed patient with new stroke based on clinical findings of left hemiplegia, left-sided numbness, left facial weakness, and functional decline below her baseline. Of note patient's right upper extremity fractures caused long-term right upper extremity weakness, limited ROM. Patient used a small base quad cane in the left hand for balance prior to this CVA. The patient was started on Plavix and aspirin. Plavix is to continue long-term. Aspirin is to continue for 3 weeks Patient asking about mammogram. Consider mammogram at later date in outpatient setting per Dr Navarrete PCP. Patient was asking timeframe to return to driving. At this time, patient is not to drive until full recovery of left neglect occurs. Patient is acceptive to [facility] at time of discharge Review of Systems Review of Systems: All systems reviewed & are unremarkable except as noted in HPI and below Functional Status Ambulation Ability Ability to Ambulate 10 Feet: Standby Assistance Ability to Ambulate 50 Feet With 2 Turns: Standby Assistance Ambulation Assistive Devices: Walker, Wheeled Transfers Ability Ability to Transfer In/Out of Chair: Standby Assistance Exam Narrative: Exam Narrative: Patient is alert and pleasant. Patient's head is normocephalic. Extraocular muscles are intact. Left neglect is noted. Speech is fluent. Heart rate and rhythm is regular. Lungs are clear to auscultation. Abdomen is soft nontender right upper extremity strength at the shoulder is trace with muscle wasting noted. Pantograph Operator strength elbow strength is 3/5 wrist and instrumentation technician strength a rough least 2+ out of 5 right lower extremity strength is 4/5 left upper extremity reveals 4- out of 5 left lower extremity 3+ to 4- out of 5. Sensory loss to LUE is moderately impaired. Proprioception was poor to LUE. LLE proprioception is returning. Patient with better understanding of her limitations. Neuro: Cranial nerves: Yes Normal hearing present Objective Data Vital Signs Vital Signs: Vital Signs - 24 hr 12/09/20 20:30 12/09/20 21:35 12/09/20 22:00 Temperature 36.3 C L Pulse Rate 70 70 70 Respiratory Rate 18 16 Blood Pressure 136/52 L Pulse Oximetry 99 96 12/10/20 06:00 12/10/20 08:38 12/10/20 14:00 Temperature 36.6 C 36.4 C L Pulse Rate 72 72 73 Respiratory Rate 18 18 Blood Pressure 136/58 L 101/43 L Pulse Oximetry 99 96 Intake/Output Intake/Output: Intake & Output 12/07/20 12/08/20 12/09/20 12/10/20 23:59 23:59 23:59 23:59 Intake Total 840 960 720 720 Balance 840 960 720 720 Meds/Results Medications: Active Medications Generic Name Dose Route Start Last Admin Trade Name Freq PRN Reason Stop Dose Admin Acetaminophen 650 mg 11/28/20 13:14 12/08/20 13:23 Acetaminophen 325 Mg Tablet PO 650 mg Q6H PRN Administration Mild Pain (1-3) or Fever Albuterol 1 puff 11/24/20 18:56 Albuterol Sulfate (*Sp) Aerosol
[2020-12-10 20:22] VITALS: PULSE 70
--- NOTE | 2020-12-10 21:57 | ADMGEN ---
This patient, Michelle Jeronimo, was admitted to [facility] Room 225-02. Patient/family oriented to hospital policies and general routines including ID bracelet, bed and alarms, visiting hours, pain management, procedures, bathroom and other care routines, personal items, smoking policy, room service/diet, and visiting hours. Information on how to activate the Rapid Response Team has been discussed. Patient/Family are encouraged to report perceived risks to care and to ask questions if they do not understand what they are told or what they should do.
[2020-12-10 22:00] VITALS: BP 117/52; PULSE 70; RESP 20; TEMP 36.4; O2SAT 100
[2020-12-11 05:44] VITALS: BP 123/55; PULSE 70; RESP 18; TEMP 36.1; O2SAT 100
[2020-12-11 09:30] VITALS: PULSE 70
[2020-12-11] MEDS: CHOLECALCIFEROL 1,000 UNITS TABLET 2000 UNITS PO (09:30)
[2020-12-11] MEDS: carvediloL 3.125 MG TABLET PO ×2 (09:30→21:01)
[2020-12-11] MEDS: CLOPIDOGREL BISULFATE 75 MG TABLET PO (09:30)
[2020-12-11] MEDS: ASPIRIN 81 MG CHEWABLE TABLET PO (09:30)
[2020-12-11] MEDS: DICLOFENAC SODIUM 1% 100 GM GEL (*BKC) 2 APPLIC TOPICAL ×4 (09:31→21:00)
[2020-12-11] MEDS: PARoxetine 10 MG TABLET PO (09:31)
[2020-12-11] MEDS: PANTOPRAZOLE 40 MG TABLET PO (09:31)
[2020-12-11] MEDS: SACUBITRIL/VALSARTAN 24-26 MG TABLET 1 TAB PO ×2 (09:31→21:01)
[2020-12-11] MEDS: EZETIMIBE 10 MG TABLET PO (09:31)
[2020-12-11] MEDS: FUROSEMIDE 20 MG TABLET PO (09:31)
[2020-12-11 14:00] VITALS: BP 107/47; PULSE 70; RESP 18; TEMP 36.2; O2SAT 100
[2020-12-11 21:01] VITALS: PULSE 70
[2020-12-11 22:00] VITALS: BP 105/49; PULSE 71; RESP 18; TEMP 36.3; O2SAT 97
[2020-12-12 05:52] VITALS: BP 125/52; PULSE 71; RESP 16; TEMP 36.2; O2SAT 100
[2020-12-12 08:00] VITALS: PULSE 71; RESP 16; O2SAT 100
[2020-12-12 08:39] VITALS: PULSE 71
[2020-12-12] MEDS: ASPIRIN 81 MG CHEWABLE TABLET PO (08:39)
[2020-12-12] MEDS: SACUBITRIL/VALSARTAN 24-26 MG TABLET 1 TAB PO ×2 (08:39→20:27)
[2020-12-12] MEDS: carvediloL 3.125 MG TABLET PO ×2 (08:39→20:26)
[2020-12-12] MEDS: PANTOPRAZOLE 40 MG TABLET PO (08:39)
[2020-12-12] MEDS: CLOPIDOGREL BISULFATE 75 MG TABLET PO (08:39)
[2020-12-12] MEDS: PARoxetine 10 MG TABLET PO (08:39)
[2020-12-12] MEDS: EZETIMIBE 10 MG TABLET PO (08:39)
[2020-12-12] MEDS: FUROSEMIDE 20 MG TABLET PO (08:39)
[2020-12-12] MEDS: CHOLECALCIFEROL 1,000 UNITS TABLET 2000 UNITS PO (08:40)
[2020-12-12] MEDS: DICLOFENAC SODIUM 1% 100 GM GEL (*BKC) 2 APPLIC TOPICAL ×4 (08:40→20:27)
--- NOTE | 2020-12-12 13:57 | WPDNEURORHBP ---
Subjective Date/time seen: 12/12/20 13:57 70 years old admitted to the rehab floor for ground level fall with head trauma and documented compression deformity of his spine in addition to multilevel degenerative changes and osteopenia and documented left hemiplegia with numbness with right upper extremity fracture in the past resulting shoulder limitation has been involved in the physical therapy and occupational therapy considering the deficit starts COVID pending potassium 5.1 and BUN 26 hemoglobin 10.9 involving therapy able to ambulate up to 50ft with 2 turns standby assist and wheeled walker Review of Systems Review of Systems: All systems reviewed & are unremarkable except as noted in HPI and below Functional Status Ambulation Ability Ability to Ambulate 10 Feet: Standby Assistance Ability to Ambulate 50 Feet With 2 Turns: Standby Assistance Ability to Ambulate 150 Feet: Standby Assistance Ambulation Assistive Devices: Walker, Wheeled Transfers Ability Ability to Transfer In/Out of Chair: Standby Assistance Exam Const: General: cooperative Nutritional Appearance: average body habitus Limitations: physical limitations HENMT: Head: normocephalic Ears: hearing grossly normal bilaterally General nose exam: Normal external nose present Face and sinus: normal facial exam Neck: Neck: full ROM Resp: Effort & Inspection: normal respiratory effort Auscultation: clear to auscultation bilaterally Neuro: General: oriented to person and oriented to place Cranial nerves: Yes Nystagmus not present, Yes Normal facial strength present, Yes Midline tongue present and Yes Ability to bilaterally rotate head present Gait exam (Neuro): Unable to assess gait Motor exam (neuro): Abnormal motor strength present Sensory Exam: Sensory deficit (Neuro) Objective Data Vital Signs Vital Signs: Vital Signs - 24 hr 12/11/20 14:00 12/11/20 21:01 12/11/20 22:00 Temperature 36.2 C L 36.3 C L Pulse Rate 70 70 71 Respiratory Rate 18 18 Blood Pressure 107/47 L 105/49 L Pulse Oximetry 100 97 12/12/20 05:52 12/12/20 08:00 12/12/20 08:39 Temperature 36.2 C L Pulse Rate 71 71 71 Respiratory Rate 16 16 Blood Pressure 125/52 L Pulse Oximetry 100 100 Intake/Output Intake/Output: Intake & Output 12/09/20 12/10/20 12/11/20 12/12/20 23:59 23:59 23:59 23:59 Intake Total 272 839 7322 240 Balance 949 491 9754 240 Meds/Results Medications: Active Medications Generic Name Dose Route Start Last Admin Trade Name Freq PRN Reason Stop Dose Admin Acetaminophen 650 mg 11/28/20 13:14 12/08/20 13:23 Acetaminophen 325 Mg Tablet PO 650 mg Q6H PRN Administration Mild Pain (1-3) or Fever Albuterol 1 puff 11/24/20 18:56 Albuterol Sulfate (*Sp) Aerosol 1 Puff INHALATION QIDRT PRN Shortness Of Breath Or Wheezing Aspirin 81 mg 11/25/20 09:00 12/12/20 08:39 Aspirin 81 Mg Chewable Tablet PO 81 mg DAILY ILYA Administration Budesonide/Formoterol Fumarate 2 puff 11/24/20 20:00 12/12/20 08:40 Budesonide/Form 160-4.5 Mcg (*Sp) INHALATION 2 puff Q12HRT ILYA Administration Carvedilol 3.125 mg 11/24/20 21:00 12/12/20 08:39 Carvedilol 3.125 Mg Tablet PO 3.125 mg Q12HR ILYA Administration Clopidogrel Bisulfate 75 mg 11/25/20 09:00 12/12/20 08:39 Clopidogrel Bisulfate 75 Mg Tablet PO 75 mg DAILY ILYA Administration Diclofenac Sodium 2 applic 11/24/20 21:00 12/12/20 08:40 Diclofenac Sodium 1% 100 Gm Gel (*Bkc) TOPICAL 12/24/20 21:01 2 applic QID ILYA Administration Ezetimibe 10 mg 11/25/20 09:00 12/12/20 08:39 Ezetimibe 10 Mg Tablet PO 10 mg DAILY ILYA Administration Furosemide 20 mg 11/25/20 09:00 12/12/20 08:39 Furosemide 20 Mg Tablet PO 20 mg DAILY ILYA Administration Pantoprazole Sodium 40 mg 11/29/20 09:00 12/12/20 08:39 Pantoprazole 40 Mg Tablet PO 40 mg QAM ILYA Administration Paroxetine HCl 10 mg 11/25/20 09:00 12/12/20 0
[2020-12-12 14:00] VITALS: BP 103/41; PULSE 70; RESP 18; TEMP 36; O2SAT 100
[2020-12-12 20:26] VITALS: PULSE 76
[2020-12-12 21:48] VITALS: BP 145/54; PULSE 82; RESP 18; TEMP 36.3; O2SAT 90
[2020-12-13] VITALS (7 sets, daily range): BP systolic 108–138; BP diastolic 38–51; PULSE 69–80; RESP 16–18; TEMP 36.2–36.3; O2SAT 96–98
[2020-12-13] MEDS: SACUBITRIL/VALSARTAN 24-26 MG TABLET 1 TAB PO ×2 (08:32→20:16)
[2020-12-13] MEDS: carvediloL 3.125 MG TABLET PO ×2 (08:32→20:16)
[2020-12-13] MEDS: ASPIRIN 81 MG CHEWABLE TABLET PO (08:32)
[2020-12-13] MEDS: PARoxetine 10 MG TABLET PO (08:32)
[2020-12-13] MEDS: DICLOFENAC SODIUM 1% 100 GM GEL (*BKC) 2 APPLIC TOPICAL ×4 (08:33→20:18)
[2020-12-13] MEDS: CHOLECALCIFEROL 1,000 UNITS TABLET 2000 UNITS PO (08:33)
[2020-12-13] MEDS: CLOPIDOGREL BISULFATE 75 MG TABLET PO (08:33)
[2020-12-13] MEDS: FUROSEMIDE 20 MG TABLET PO (08:33)
[2020-12-13] MEDS: PANTOPRAZOLE 40 MG TABLET PO (08:33)
[2020-12-13] MEDS: EZETIMIBE 10 MG TABLET PO (08:33)
[2020-12-13 14:53] LABS: SARS-CoV-2 RNA PCR Negative
[2020-12-13] MEDS: ACETAMINOPHEN 325 MG TABLET 650 MG PO (20:13)
[2020-12-14 06:00] VITALS: BP 107/47; PULSE 70; RESP 16; TEMP 36.3; O2SAT 97
[2020-12-14] MEDS: DICLOFENAC SODIUM 1% 100 GM GEL (*BKC) 2 APPLIC TOPICAL ×4 (09:14→20:57)
[2020-12-14] MEDS: ASPIRIN 81 MG CHEWABLE TABLET PO (09:15)
[2020-12-14] MEDS: carvediloL 3.125 MG TABLET PO ×2 (09:15→20:57)
[2020-12-14] MEDS: PARoxetine 10 MG TABLET PO (09:16)
[2020-12-14] MEDS: PANTOPRAZOLE 40 MG TABLET PO (09:16)
[2020-12-14] MEDS: CLOPIDOGREL BISULFATE 75 MG TABLET PO (09:16)
[2020-12-14] MEDS: SACUBITRIL/VALSARTAN 24-26 MG TABLET 1 TAB PO ×2 (09:16→20:57)
[2020-12-14] MEDS: EZETIMIBE 10 MG TABLET PO (09:16)
[2020-12-14] MEDS: CHOLECALCIFEROL 1,000 UNITS TABLET 2000 UNITS PO (09:16)
[2020-12-14] MEDS: FUROSEMIDE 20 MG TABLET PO (09:16)
[2020-12-14] MEDS: ACETAMINOPHEN 325 MG TABLET 650 MG PO (09:17)
--- NOTE | 2020-12-14 09:41 | PCOTNOTE ---
Michelle Jeronimo was evaluated for bilateral brake extensions on 12/14/20 by this occupational therapist.? The brake extensions will resolve patient's inability to lock and unlock her w/c brakes and will allow for independence with w/c mobility in her room. The patient is unable to lock or unlock standard w/c brakes due to decreased bilateral shoulder range of motion, left upper extremity ataxia with weakness and incoordination due to recent CVA, and history of three right humoral fractures with limited functional use of right upper extremity since fracture. the brake extensions will be used for mobility and during all ADL's within the home. The patient is unable to lock or unlock brakes without extensions but with brake extensions she is safe and independent with locking and unlocking brakes. The brake extensions will resolve the patient?s mobility deficits.
--- NOTE | 2020-12-14 13:25 | PCDIET ---
Nutrition Follow-Up Complete: Nutrition Diagnosis: Inadequate oral food and beverage intake related to CVA as evidence by decreased appetite. Nutrition Goal: Meet estimated nutritional needs. Goal met. Patient consuming 75-100% of most meals on heart healthy diet. Reports good appetite and denies c/o. Eager for discharge this week. Last recorded weight is 68.5 kg. Recommend obtaining new weight. Bowel Motility: Last documented BM on 12/13/20. Labs Reviewed: Hgb (10.9), Hct (33.8), K (5.1) Meds Noted: Symbicort, Entresto, Coreg, Zetia, Plavix, Lasix, Vitamin D, Protonix Additional Notes: No open sores documented. Will continue to monitor with same goal. Nutrition Monitoring and Evaluation: Follow up in 7 days.
[2020-12-14] MEDS: LIDOCAINE 5% PATCH 1 PATCH TRANSDERM (13:55)
[2020-12-14 14:00] VITALS: BP 117/59; PULSE 67; RESP 18; TEMP 36.3; O2SAT 97
--- NOTE | 2020-12-14 15:47 | WPDNEURORHBP ---
Subjective Date/time seen: 12/14/20 15:47 Patient complains of right upper extremity soreness after performing overhead activities with weekend therapist Review of Systems Review of Systems: All systems reviewed & are unremarkable except as noted in HPI and below Functional Status Ambulation Ability Ability to Ambulate 10 Feet: Independent Ability to Ambulate 50 Feet With 2 Turns: Standby Assistance Ability to Ambulate 150 Feet: Standby Assistance Ambulation Assistive Devices: Walker, Wheeled Transfers Ability Ability to Transfer In/Out of Chair: Standby Assistance Exam Narrative: Exam Narrative: patient is seen during OT in the bathroom. Patient is sitting with good sitting balance. When asked to move left lower Extremity, patient hits the toilet. Patient continues to repeat the movement and striking the toilet even though examiner is emphasizing to pay attention to the left lower extremity. Objective Data Vital Signs Vital Signs: Vital Signs - 24 hr 12/13/20 20:10 12/13/20 20:16 12/13/20 21:42 Temperature 36.3 C L Pulse Rate 69 80 69 Respiratory Rate 16 16 Blood Pressure 111/38 L Pulse Oximetry 96 96 12/14/20 06:00 12/14/20 14:00 Temperature 36.3 C L 36.3 C L Pulse Rate 70 67 Respiratory Rate 16 18 Blood Pressure 107/47 L 117/59 L Pulse Oximetry 97 97 Intake/Output Intake/Output: Intake & Output 12/11/20 12/12/20 12/13/20 12/14/20 23:59 23:59 23:59 23:59 Intake Total 1080 960 840 480 Balance 1080 960 840 480 Meds/Results Medications: Active Medications Generic Name Dose Route Start Last Admin Trade Name Freq PRN Reason Stop Dose Admin Acetaminophen 650 mg 11/28/20 13:14 12/14/20 09:17 Acetaminophen 325 Mg Tablet PO 650 mg Q6H PRN Administration Mild Pain (1-3) or Fever Albuterol 1 puff 11/24/20 18:56 Albuterol Sulfate (*Sp) Aerosol 1 Puff INHALATION QIDRT PRN Shortness Of Breath Or Wheezing Aspirin 81 mg 11/25/20 09:00 12/14/20 09:15 Aspirin 81 Mg Chewable Tablet PO 81 mg DAILY ILYA Administration Budesonide/Formoterol Fumarate 2 puff 11/24/20 20:00 12/14/20 09:14 Budesonide/Form 160-4.5 Mcg (*Sp) INHALATION 2 puff Q12HRT ILYA Administration Carvedilol 3.125 mg 11/24/20 21:00 12/14/20 09:15 Carvedilol 3.125 Mg Tablet PO 3.125 mg Q12HR ILYA Administration Clopidogrel Bisulfate 75 mg 11/25/20 09:00 12/14/20 09:16 Clopidogrel Bisulfate 75 Mg Tablet PO 75 mg DAILY ILYA Administration Diclofenac Sodium 2 applic 11/24/20 21:00 12/14/20 12:57 Diclofenac Sodium 1% 100 Gm Gel (*Bkc) TOPICAL 12/24/20 21:01 2 applic QID ILYA Administration Ezetimibe 10 mg 11/25/20 09:00 12/14/20 09:16 Ezetimibe 10 Mg Tablet PO 10 mg DAILY ILYA Administration Furosemide 20 mg 11/25/20 09:00 12/14/20 09:16 Furosemide 20 Mg Tablet PO 20 mg DAILY ILYA Administration Lidocaine 1 patch 12/14/20 13:32 12/14/20 13:55 Lidocaine 5% Patch TRANSDERM 1 patch DAILY ILYA Administration Pantoprazole Sodium 40 mg 11/29/20 09:00 12/14/20 09:16 Pantoprazole 40 Mg Tablet PO 40 mg QAM ILYA Administration Paroxetine HCl 10 mg 11/25/20 09:00 12/14/20 09:16 Paroxetine 10 Mg Tablet PO 10 mg DAILY ILYA Administration Sacubitril/Valsartan 1 tab 11/24/20 21:00 12/14/20 09:16 Sacubitril/Valsartan 24-26 Mg Tablet PO 1 tab Q12HR ILYA Administration Vitamin D 2,000 units 11/25/20 09:00 12/14/20 09:16 Cholecalciferol 1,000 Units Tablet PO 2,000 units DAILY ILAY Administration Progress Note: A&P Assessment and Plan (1) Osteoporosis: Code(s): M81.0 - Age-related osteoporosis without current pathological fracture Status: Acute (2) Depression: Code(s): F32.9 - Major depressive disorder, single episode, unspecified Status: Acute (3) Left-sided neglect: Code(s): R41.4 - Neurologic neglect syndrome Status: Acute (4) Hemisensory lo
[2020-12-14 20:57] VITALS: PULSE 67
[2020-12-14 21:32] VITALS: BP 150/66; PULSE 70; RESP 16; TEMP 36.4; O2SAT 98
[2020-12-15 06:00] VITALS: BP 122/54; PULSE 71; RESP 16; TEMP 36.3; O2SAT 93
[2020-12-15] MEDS: DICLOFENAC SODIUM 1% 100 GM GEL (*BKC) 2 APPLIC TOPICAL (10:38)
[2020-12-15 10:39] VITALS: PULSE 71
[2020-12-15] MEDS: ASPIRIN 81 MG CHEWABLE TABLET PO (10:39)
[2020-12-15] MEDS: carvediloL 3.125 MG TABLET PO (10:39)
[2020-12-15] MEDS: CHOLECALCIFEROL 1,000 UNITS TABLET 2000 UNITS PO (10:39)
[2020-12-15] MEDS: PARoxetine 10 MG TABLET PO (10:40)
[2020-12-15] MEDS: PANTOPRAZOLE 40 MG TABLET PO (10:40)
[2020-12-15] MEDS: FUROSEMIDE 20 MG TABLET PO (10:40)
[2020-12-15] MEDS: SACUBITRIL/VALSARTAN 24-26 MG TABLET 1 TAB PO (10:40)
[2020-12-15] MEDS: CLOPIDOGREL BISULFATE 75 MG TABLET PO (10:40)
[2020-12-15] MEDS: EZETIMIBE 10 MG TABLET PO (10:40)
[2020-12-15] MEDS: LIDOCAINE 5% PATCH 1 PATCH TRANSDERM (11:15)
--- NOTE | 2020-12-15 11:26 | PM.DS ---
DS: Admitting Diagnosis Admitting Diagnosis Admitting Diagnosis: CVA with left hemiplegia DS: Discharge Diagnosis Discharge Diagnosis (1) Osteoporosis: Code(s): M81.0 - Age-related osteoporosis without current pathological fracture Status: Acute Assessment and Plan: Ibandronate once per schedule time. Will clarify when family brings in med (2) Depression: Code(s): F32.9 - Major depressive disorder, single episode, unspecified Status: Acute Assessment and Plan: Paxil 10 mg daily (3) Left-sided neglect: Code(s): R41.4 - Neurologic neglect syndrome Status: Acute Assessment and Plan: add speech for cognitive eval and treat and left-side scanning. (4) Hemisensory loss: Code(s): R20.0 - Anesthesia of skin Status: Acute Assessment and Plan: PT OT (5) Left hemiplegia: Code(s): G81.94 - Hemiplegia, unspecified affecting left nondominant side Status: Acute Assessment and Plan: PT OT (6) CVA (cerebral vascular accident): Code(s): I63.9 - Cerebral infarction, unspecified Status: Acute Assessment and Plan: aspirin 81 mg daily for 3 weeks. Plavix 75 mg daily (7) History of fracture of left hip: Code(s): Z87.81 - Personal history of (healed) traumatic fracture Status: Acute (8) Pacemaker: Code(s): Z95.0 - Presence of cardiac pacemaker Status: Acute (9) Osteoarthritis: Code(s): M19.90 - Unspecified osteoarthritis, unspecified site Status: Acute (10) COPD (chronic obstructive pulmonary disease): Code(s): J44.9 - Chronic obstructive pulmonary disease, unspecified Status: Acute Assessment and Plan: Symbicort 2 puffs b.i.d. (11) Hyperlipidemia: Code(s): E78.5 - Hyperlipidemia, unspecified Status: Acute Assessment and Plan: Zetia 10 mg daily (12) Hypertension: Code(s): I10 - Essential (primary) hypertension Status: Acute Assessment and Plan: Coreg 3.125 mg daily Entresto one tab BID (13) Coronary artery abnormality: Code(s): Q24.5 - Malformation of coronary vessels Status: Acute DS: Summary Hospital Course Hospital Course: Interval history: The patient is a 70-year-old female with past medical history of a RUE fracture in 2010 with ongoing RUE decrease ROM and proximal weakness, AAA monitored by vascular surgery and 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 The patient reported being lightheaded after the fall with left leg weakness.. WORKUP: CT of the head was negative for any acute abnormalities. CT of the cervical and lumbar spine demonstrated mild compression deformity involving the superior endplate of L2 without retropulsion, and multilevel degenerative changes with osteopenia. A head MRI could not be completed due to patient's pacemaker. CTA of the head and neck showed no significant stenosis or occlusion. Echocardiogram showed left ventricular systolic function was severely reduced less than 30% with ejection fraction of 25-30%, and mild mitral stenosis with mild aortic regurgitation. Neurology diagnosed patient with new stroke based on clinical findings of left hemiplegia, left-sided numbness, left facial weakness, and functional decline below her baseline. Of note patient's right upper extremity fractures caused long-term right upper extremity weakness, limited ROM. Patient used a small base quad cane in the left hand for balance prior to this CVA. The patient was started on Plavix and aspirin. Plavix is to continue long-term. Aspirin is to continue for 3 weeks REHAB HOSPITAL COURSE: ANTICOAGULATION; Per neurology ASA was to be discontinued after 3 weeks. Patient is to remain on Plavix. Follow up with DR Pierre Nix. MAMMOGRAM: Patient to have mammogram performed as an outpatient p
== END 2020-12-15 12:19 | disposition home health service (06) | DRG 57 ==
PROVIDERS: Admitting Provider Physical Medicine & Rehabilitation; PCP Internal Medicine; Visit Provider Physical Medicine & Rehabilitation
DX: I69.354 Hemiplegia and hemiparesis following cerebral infarction affecting left non-dominant side (principal); I69.392 Facial weakness following cerebral infarction; W19.XXXD Unspecified fall, subsequent encounter; M62.81 Muscle weakness (generalized); E78.5 Hyperlipidemia, unspecified; E01.0 Iodine-deficiency related diffuse (endemic) goiter; F32.9 Major depressive disorder, single episode, unspecified; I25.10 Atherosclerotic heart disease of native coronary artery without angina pectoris; I11.0 Hypertensive heart disease with heart failure; I50.9 Heart failure, unspecified; I71.4 Abdominal aortic aneurysm, without rupture; I05.2 Rheumatic mitral stenosis with insufficiency; J44.9 Chronic obstructive pulmonary disease, unspecified; M81.0 Age-related osteoporosis without current pathological fracture; M19.90 Unspecified osteoarthritis, unspecified site; Z95.810 Presence of automatic (implantable) cardiac defibrillator; Z87.891 Personal history of nicotine dependence; Z20.822 Contact with and (suspected) exposure to COVID-19
CPT/HCPCS: 36415; 80053; 80061; 85025; 92507; 92523; 92526; 92610; 94640; 97110; 97112; 97116; 97129; 97130; 97161; 97166; 97530; 97535; 97542; A9270; C9803; U0003; U0005